=== PATIENT | male | born 1955 | race Caucasian/White ===

== ENCOUNTER → 2018-02-27 | Day surgery (SDC) | payer OTHER ==
[2018-02-27] VITALS (10 sets, daily range): BP systolic 125–167; BP diastolic 69–103; PULSE 51–62; TEMP 36.4–36.6; O2SAT 95–98; Ht 167.6 cm; Wt 91.0 kg
[~2018-02-27] VITALS: Ht 167.6 cm; Wt 91.0 kg
[~2018-02-27] MED LIST: ACETAMINOPHEN 500 MG TAB PO PRN; ASPI1TAB83 PO; ERGO500011 PO; HYDR-4852 PO; LPR50 PO; SIMV20TA2 PO
--- NOTE | 2018-02-27 08:52 | Discharge Instructions ---
Discharge Instructions Procedure Procedure Date: February 27, 2018. Reason for visit: Spinal Stenosis. Discharge Discharge Date: February 27, 2018. Discharge Diagnosis: same Instructions Activity Recommendations: No limitations Return to School/Work: no limitations Recommended Home Diet: Resume Previous Diet Provider Instructions: ACTIVITY RECOMMENDATIONS: * Rest today. * Resume regular activity in one day. MEDICATIONS: * May take Tylenol or Ibuprofen as needed for pain. DIET: * Resume previous diet. SPECIAL CARE INSTRUCTIONS: Call your doctor if: * Temperature above 101 degrees F. * Pain not relieved by pain medicine ordered. * Increased drainage or redness from incision. * Notify your doctor with any questions or concerns. Call your doctor or go to the nearest Emergency Department if you experience: * Increased chest pain or shortness of breath. FOLLOW UP VISIT: Follow-up with Referring Physician as scheduled. Allergies Coded Allergies: NO KNOWN DRUG ALLERGIES (Verified Allergy, Unknown, NONE, 02/27/18) Sofia Garcia Recommendations: Call your doctor if: * Temperature above 101 degrees * Pain not relieved by pain medicine ordered * There is increased drainage or redness from any incision * You have any unanswered questions or concerns. Your Doctors Instructions noted above were prepared by provider Hans Molina. Patient Signature Section: Patient Instructions Signature Page Arun Castillo Patient (or Guardian) Signature/Date: I have read and understand the instructions given to me by my caregivers. Caregiver/RN/Doctor Signature/Date: The above-named patient and/or guardian has received patient instructions on this date. + Original Patient Signature Page (only) stays with chart. Please make copy for patient.
--- NOTE | 2018-02-27 09:14 | DIAGNOSTIC IMAGING REPORT ---
FLUOROSCOPICALLY GUIDED LUMBAR MYELOGRAM CLINICAL HISTORY: back pain FLUOROSCOPY TIME: 0.2 minutes. 2 fluoroscopic spot images of the lumbar spine. PROCEDURE: The procedure, risks and benefits were discussed with the patient including the risk of spinal headache, bleeding and infection. The patient agreed to the procedure and informed written consent was obtained. The procedure was performed by Dr. Molina following a timeout. The L4-L5 level was targeted. Skin overlying the space was prepped and draped in the usual sterile fashion and local anesthesia was achieved with 1% lidocaine. Under intermittent fluoroscopic guidance, a 20-gauge x 3 1/2 in. Sprotte needle was inserted into the thecal sac. A total of 10 cc of Isovue-M 200 was injected into the thecal sac. The patient tolerated the procedure well. There were no immediate complications. IMPRESSION: Successful fluoroscopic guided lumbar myelogram. The patient was sent to the CT suite in stable condition for additional imaging. No immediate complications. Electronically signed by: Hans Molina M.D. 02/27/2018 9:13 AM Dictated Date/Time: 02/27/2018 9:11 AM
--- NOTE | 2018-02-27 09:29 | DIAGNOSTIC IMAGING REPORT ---
LUMBAR SPINE CT MYELOGRAM HISTORY: Low back pain. TECHNIQUE: Multiaxial CT images of the lumbar spine were performed and reformatted in the sagittal and coronal plane following the intrathecal injection of contrast. COMPARISON: Lumbar spine MRI 07/04/2014. FINDINGS: For the purpose of the report there will be 6 lumbar-type vertebral bodies with the L6 S1 disc space located on axial image 305. The L6 vertebral body demonstrates partial sacralization on the right with pseudoarthrosis of the right transverse process. There is posterior decompression and fusion at L5 L6 with pedicle screws and rods. The hardware appears intact. There is a right sacroiliac bolt present. No fractures within the lumbar spine. There is 4 mm of anterolisthesis of L5 on L6. This remains unchanged. Moderate facet degenerative changes at L3-L4, L4-L5, and L6 S1. Mild disc space narrowing at L5 L6 and L4-L5. There is minimal disc space narrowing at L2-L3. The conus terminates at the L1 level. L1-L2: No significant central canal or neural foraminal narrowing. L2-L3: Small broad-based posterior disc bulge without resulting in minimal central canal narrowing. This remains unchanged. L3-L4: No significant central canal or neural foraminal narrowing. L4-L5: No significant central canal or neural foraminal narrowing. L5 L6: No significant central canal narrowing. Posterior decompression. Mild bilateral neural foraminal narrowing. L6 S1: No significant central canal narrowing. Mild bilateral neural foraminal narrowing. IMPRESSION: 1. For the purpose of the report there are 6 lumbar-type vertebral bodies. Therefore, the posterior decompression and fusion is at L5 L6. 2. Small broad-based posterior disc bulge at L2-L3 resulting in minimal central canal narrowing. This remains unchanged. 3. Mild bilateral neural foraminal narrowing at L5 L6 and L6 S1. 4. Stable grade I anterolisthesis of L5 on L6. Electronically signed by: Hans Molina M.D. 02/27/2018 9:28 AM Dictated Date/Time: 02/27/2018 9:13 AM
== END | disposition home or self-care (01) ==
LOC: C.ACU 06:18
PROVIDERS: ATTEND Orthopaedic Surgery Orthopaedic Surgery of the Spine
DX: M48.061 Spinal stenosis, lumbar region without neurogenic claudication (principal)

== ENCOUNTER 2023-03-13 06:23 | Observation (INO) ==
--- NOTE | 2023-02-21 14:07 | PAT Medication Instructions ---
Medication Instructions Date of Service February 21, 2023 Home Medications aspirin 81 mg tablet,delayed release (Adult Aspirin Regimen) 81 mg PO HS metoprolol tartrate 50 mg tablet 50 mg PO HS ascorbic acid (vitamin C) 500 mg tablet (Vitamin C) 500 mg PO HS cholecalciferol (vitamin D3) 125 mcg (5,000 unit) tablet (Vitamin D3) 125 mcg PO HS ezetimibe 10 mg tablet 10 mg PO HS lisinopril 10 mg tablet 10 mg PO HS rosuvastatin 20 mg tablet 20 mg PO HS Take evening before surgery aspirin 81 mg tablet,delayed release (Adult Aspirin Regimen) 81 mg PO HS (continue as normal unless told otherwise by surgeon) metoprolol tartrate 50 mg tablet 50 mg PO HS ascorbic acid (vitamin C) 500 mg tablet (Vitamin C) 500 mg PO HS cholecalciferol (vitamin D3) 125 mcg (5,000 unit) tablet (Vitamin D3) 125 mcg PO HS ezetimibe 10 mg tablet 10 mg PO HS lisinopril 10 mg tablet 10 mg PO HS rosuvastatin 20 mg tablet 20 mg PO HS Other Notes If you have any questions please call us at [phone] or [phone] or [phone] or [phone]
--- NOTE | 2023-02-22 10:39 | Anesthesiology Consultation ---
Date of Service February 22, 2023 Assessment & Plan (1) Encounter for pre-operative examination: Chart Review Chart Review: Acceptable Risk for Surgery and Patient seen in Pre Admission Testing - Discussed case with Dr Noyola- patient stable from cardiac standpoint- follows routeinly with PCP- can proceed as scheduled without further evaluation - Pt is NOT an Outpatient Joint candidate due to comorbidities Per PAT appt on 02/20/23, patient traveling to [place] 02/24/23-03/01/23. Pt is vaccinated for Covid. Will leave to surgeon's discretion if preop Covid testing needed. Educated on importance of using Covid precautions one week prior to surgery Last seen by PCP 01/18/23= Seen for acute visit. Planning to travel to [place] near future. Start Celebrex after supper for knee inflammation. Hydrocodone given to take as needed. Follow simple diet rules. Call for further problems. Get nonfasting labs prior to next visit. Seen by PCP 01/02/2023 = CADstatus post CABG x3 in 2002. Hyperlipidemiaokay with Zetia and statin. [id number] 6.6-6.0diet controlled. Hypertensionokay with meds. DJD- get consults (referred to ortho). Mood disorderbetter ED. Teaching & Discussion Pre-Anesthesia Teaching/Discussion Notes: Instructed NPO after midnight before surgery,except medications with 15 cc of water. Medication instructions provided according to the PAT guidelines. History Surgery Operation Date: 03/13/23 10:40 Proposed Procedures p Right Knee Unicompartmental versus - See Causey MD s Right Total Knee Arthroplasty - See Causey MD Height/Weight Height: 5 ft 6 in Weight: 88.7 kg Allergies Allergy/AdvReac Type Severity Reaction Status Date / Time No Known Drug Allergies Allergy Unknown NONE Verified 02/21/23 11:47 Medications Home Medications Medication Instructions Recorded Confirmed Last Taken aspirin 81 mg tablet,delayed 81 mg PO HS 07/12/18 02/21/23 Unknown release (Adult Aspirin Regimen) metoprolol tartrate 50 mg tablet 50 mg PO HS 07/12/18 02/21/23 Unknown ascorbic acid (vitamin C) 500 mg 500 mg PO HS 02/21/23 02/21/23 Unknown tablet (Vitamin C) cholecalciferol (vitamin D3) 125 125 mcg PO HS 02/21/23 02/21/23 Unknown mcg (5,000 unit) tablet (Vitamin D3) ezetimibe 10 mg tablet 10 mg PO HS 02/21/23 02/21/23 Unknown lisinopril 10 mg tablet 10 mg PO HS 02/21/23 02/21/23 Unknown rosuvastatin 20 mg tablet 20 mg PO HS 02/21/23 02/21/23 Unknown Past Medical History Medical History Anxiety no meds Coronary artery disease S/p stents prior to 2002 S/p 3 vessel CABG 2002 No longer follows with cardio (only PRN) GERD (gastroesophageal reflux disease) Well controlled and stable Hearing deficit Hyperlipidemia Hypertension Lumbar degenerative disc disease (09/01/14) Lumbar postlaminectomy syndrome Sacroiliac joint dysfunction History of right SI joint fusion Exercise / Class Metabolic Activity II 4-5 Yardwork/Stairs/Walk up hill (one flight of stairs - no chest pain or SOB - uses cane for long distance ambulation- 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[employer])) Past Family History Family History Father Heart disease Mother Diabetes Other No family history of adverse response to anesthesia Past Surgical History Surgical History History of cardiac cath x5?--had stents placed (unsure how many--last had stents placed prior to triple bypass in 2002) last heart cath 2013@ [facility] (no stents placed) History of colonoscopy History of coronary artery bypass graft triple bypass @ 2002 @ [facility] in [place] History of lumbar fusion L4-5 History of tooth extraction S/P right knee arthroscopy Past Anesthesia History No Hx of Anesthesia Complications and No Family Hx of Anesthesia Complications History of PONV No Hx of PONV (nausea with pain medication after lumbar surgery (unsure of the name)) and No Hx of Motion Sickness Social History Smoking Status: Never smoker Do You Dip or Chew Tobacco: No (quit years ago) Hx Alcohol Use: No Hx Substance Use: No substance use type: does not use Review of Systems Hx of snoring- improved with weight loss- no hx of sleep study Patient denies chest pain, shortness of breath, dyspnea on exertion, cough, wheezing, palpitations. No hx of seizures, stroke. No hx of blood clots or blood transfusions Physical Exam Vital Signs VITALS BP 157/89 P 53bpm TEMP 98.1 SP02 98% RESP 16 Constitutional no acute distress ENMT Mouth: no TMJ clicking Thyromental Distance: > or= 3.5 Finger Breadths (3.5) Mallampati Class: I Neck + limited neck extension (mild to moderate ) Respiratory normal respiratory effort; no respiratory distress Auscultation: lungs clear to auscultation bilaterally; no wheezes Cardiovascular Rate/Rhythm: regular rate and regular rhythm Heart Sounds: no murmur Vessels: no carotid bruit Musculoskeletal Spine: no pain with cervical ROM (pain in shoulder with neck extension ) Extremities: extremities normal to inspection Psychiatric Orientation: alert Lab Results Anesthesia Preop Results Results Anesthesia Widget: WBC 8.34 K/ul (4.8-10.8) 02/22/23 Hgb 15.9 g/dl (14.0-18.0) 02/22/23 Hct 47.0 % (42.0-52.0) 02/22/23 Plt 307 K/uL (130-400) 02/22/23 Na 138 mmol/L (136-145) 02/22/23 K 4.7 mmol/L (3.5-5.1) 02/22/23 Cl 105 mmol/L (98-107) 02/22/23 CO2 28 mmol/L (21-32) 02/22/23 BUN 11 mg/dl (6-23) 02/22/23 Creat 0.71 mg/dl (0.6-1.4) 02/22/23 Glucose Level 76 mg/dl (70-99(Fasting)) 02/22/23 PT 10.6 Seconds (9.0-12.0) 02/22/23 PTT 27.8 Seconds (21.0-31.0) 02/22/23 INR 1.0 (0.9-1.1) 02/22/23 Blood Type O Positive 02/22/23 Antibody Screen NEGATIVE 02/22/23 Testing Electrocardiogram Date: 02/22/23 Findings: + SB @ (50bpm ) Right bundle branch block T wave abnormality, consider inferior lateral ischemia Compared to EKG from July 22, 2014no significant change was found per cardio Chest X-Ray Date: 02/22/23 Findings: + NAD COVID-19 Risk Screen Screening Information COVID-19 Screen Date: 02/22/23 Exposure 21 Days Family/Household +COVID Last 21 Days: No Exposure 10 Days Any COVID Exposure Last 10 Days: No Symptoms Last 10 Days Experienced COVID Sx Last 10 Days: No + COVID 0-90 Days COVID + in Last 0-90 Days: No Risk Plan COVID Risk Plan: No Risk Identified Patient Education COVID Preop Screening Education Complete: Yes
[~2023-03-13 06:23] MED LIST changes: -ACETAMINOPHEN 500 MG TAB PO PRN; +ACETAMINOPHEN 500 MG TAB PO SCH; -ASPI1TAB83 PO; +BUPIVACAINE LIPOSOME/PF 266 MG, BUPIVACAINE/EPINEPHRINE 50 ML, SODIUM CHLORIDE 0.9% PF ... INFIL SCH; +CeleBREX 200 MG CAP PO SCH; -ERGO500011 PO; +FAMOTIDINE 20 MG TAB PO SCH; -HYDR-4852 PO; -LPR50 PO; +LR 500ML BOLUS, THEN 15ML/HR IV SCH; +LR 60ML/HR IV SCH; +METOCLOPRAMIDE HCL 10 MG TABLET PO SCH; -SIMV20TA2 PO; +Scopolamine 1 MG TDSY TD SCH; +TRANEXAMIC ACID 1,000 MG **IV Intra-op IV SCH; +ceFAZolin 2000MG 2,000 MG/15 ML SYR IV SCH; +dexAMETHasone**PF** 10 MG/ML VIAL IV SCH
[2023-03-13] MEDS ORDERED: EPINEPHrine INJ 1 MG/ML AMP ONE (06:25)
[2023-03-13] MEDS ORDERED: BUPIVACAINE 0.5 % 5 MG/1 ML PF 10ML VIAL ONE (06:25)
[2023-03-13] MEDS ORDERED: ROPIVACAINE 0.5% 5 MG/ML 30 ML VIAL ONE (06:25)
--- NOTE | 2023-03-13 06:49 | History & Physical Bridge Note ---
Date of Service March 13, 2023 History & Physical Bridge Note I have examined the patient, reviewed the History & Physical and in the interval since the performance of the History & Physical I have noted the following changes of clinical significance: no changes noted
[2023-03-13] MEDS ORDERED: MIDAZOLAM HCL 1 MG/ML 2ML VIAL ONE (07:54)
[2023-03-13] MEDS ORDERED: fentaNYL citrate PF 100 MCG/2 ML VIAL ONE (07:54)
[2023-03-13] MEDS ORDERED: PROPOFOL IV EMULSION 10 MG/ML 20 ML VIAL IV ONE ×2 (07:54→10:11)
[2023-03-13] MEDS ORDERED: LIDOCAINE 2% 2 ML VIAL/AMP(20MG/ML) INFIL ONE (07:54)
[2023-03-13] MEDS ORDERED: ONDANSETRON INJ 2 MG/ML 2 ML VIAL ONE (07:54)
[2023-03-13] MEDS ORDERED: BUPIVACAINE/EPINEPHRINE 0.25% 1:200,000 30 ML VIAL ONE (08:38)
[2023-03-13] MEDS ORDERED: SODIUM CHLORIDE 0.9% PF 50 ML VIAL ONE (08:38)
[2023-03-13] MEDS ORDERED: BUPIVACAINE LIPOSOME 1.3% 266 MG/20 ML VIAL ONE (08:39)
[2023-03-13] MEDS ORDERED: KETAMINE 50 MG/5 ML SYRINGE ONE (08:57)
[2023-03-13] MEDS ORDERED: GLYCOPYRROLATE 0.2 MG/ML VIAL ONE (09:38)
[2023-03-13] MEDS ORDERED: ePHEDrine sulfate 50 MG/ML AMP IV PRN (09:45)
[2023-03-13] MEDS ORDERED: ATROPINE SULFATE 0.1 MG/ML 10ML SYR IV PRN (09:45)
[2023-03-13] MEDS ORDERED: KETOROLAC 30 MG/ML VIAL ONE (10:01)
--- NOTE | 2023-03-13 10:36 | Operative Report ---
PG Post Operative Report Pre & Post Diagnosis Operation Date: 03/13/23 08:40 Pre-Op Diagnosis: Right Knee Degenerative Joint Disease Post-Op Diagnosis: Right Knee Degenerative Joint Disease I identified the patient and participated in the time-out.: Yes Procedure Operation Date: 03/13/23 08:40 Actual Procedures p Right Knee Unicompartmental Arthroplasty(Right) - See Causey MD Surgeon See Causey MD Padded Products Finisher Eugenio Moseley PA-C Estimated Blood Loss 20 Findings Consistent with Post-Op Diagnosis Operative findings revealed advanced right knee medial compartment DJD. He had extensive grade 4 disease of the medial compartment and medial femoral condyle. Patient blood full-thickness cartilage loss. He had a central defect in the trochlea but the patella looked good. In the lateral compartment was just a slight bit of wear of the lateral femoral condyle and central aspect. Everything else looked well and we elected proceed with a partial knee replacement Specimens Right knee sent for pathology Anesthesia Type Spinal MAC Complications none Indications Patient is a 67-year-old gentleman whose had a history of progressive right medial knee pain discomfort describes gotten worse over the past 6 months. X- rays show progressive loss of medial joint space. MRI showed extensive marrow edema in the medial tibial plateau and medial femoral condyle. The rest of his knee look pretty well-preserved. His symptoms all localized to the medial side of his knee. He elected proceed with partial knee replacement. Description of Procedure Operative implants consist of: 1 Biomet Carbonado size medium femoral component. 2. Biomet Carbonado right medial size D tibial tray. 3. 4 mm mobile-bearing polyethylene insert. The patient was taken to the operating room, identified, and placed on the op erating table supine position. All contact areas were appropriately padded. IV antibiotics were provided by anesthesia team. A spinal anesthetic and abductor canal block had been provided in the holding area. We attempted to place a Mercer catheter but it folded up on itself on 2 separate occasions so we elected to leave this out. A right thigh turn was then placed. The right lower extremity then prepped and draped in usual sterile fashion. The right leg was elevated exsanguinated with use of an Esmarch and the tourniquet was placed at 300 mmHg. An anterior approach of the right knee was then performed to longitudinal incision centered over the medial aspect of the patella. This incision extended from superior pole the patella to just medial to the tibial tubercle. Sharp dissection Through subcutaneous tissues down to the extensor mechanism. A medial parapatellar arthrotomy incision was made. Some subperiosteal dissection was carried out medially. Great care was taken to protect the MCL at all times. The fat pad was resected. I then examined the knee and there was fairly minimal wear laterally. There is a small central defect of the trochlea and I elected proceed with a partial knee replacement. The distal femur was sized to a medium. The medium spoon was placed. The external tibial alignment jig was then placed in the interface of the tibia and attached to the spoon with a 4G clamp. The tibial cutting guide was pinned in place. The tibial cut was made. The tibia was sized to a size D. Attention drawn the femur. The distal femur was entered with a sharp drop with intramedullary jordin was placed. A medium femoral component set at 4 was then placed and attached to the IM jordin. The holes for the femoral component was placed. The posterior osteophyte guide was then placed in the posterior osteophyte was removed. I then milled the distal femur with a 0 spigot. I then resected the medial meniscus. We then trialed the knee and the 4 feeler gauge fit appropriately in flexion and the 1 in extension. We then placed the 3 spigot and milled the distal femur. We reach out the knee and the 4 feeler gauge fit appropriately in flexion extension. We elect to use these implants. Of note, his bone was quite soft and the femur and displacing the femoral component with the central hole caused a little bit of enlargement of the hole. All trial components were removed. Posterior osteophyte cutting guide was placed in the posterior osteophyte was removed. The cement drill was used to create holes in the distal femur for cement. The tibial tray was pinned in position and the toothbrush blade was used to create the defect for the tibial keel. We then trialed the knee 1 more time and the 4 insert fit appropriately. We elect to place these implants permanently. All trial implants were removed. I irrigated the wound extensively. We did inject locally with 100 cc of combination of 20 cc of Exparel, 30 cc normal saline, 50 cc of quarter percent Marcaine with epinephrine. A single patch of Palacos G cement was then mixed. A size medium femoral component, a size right medial de tibial tray were then cemented in place. All extraneous cement was removed. The 4 feeler gauge was placed and the knee was brought into 30 degrees short of full extension till cement hardened. Final cement check was then performed. The the wound was once again irrigated. We trialed the knee 1 more time and the fourth insert fit appropriately. The permanent 4 insert was placed. The tourniquet was then let down for tourniquet time 58 minutes. Hemo stasis assured with electrocautery. Extensor mechanism closed with #1 Vicryl suture in a [id number] fashion. Extensor mechanism checked found to be intact and subcutaneous tissues then closed with 2 Dexon suture in buried interrupted fashion skin was closed with skin miranda. Leg was then cleaned and dried and a sterile dressing was Xeroform, 4 fours, sterile cast padding, Zay bandage were applied. The patient then transferred to the recovery room in stable condition. The patient tolerated procedure well and there were no complications. Eugenio Moseley, my physician assistant grocery store manager, was present for the entire procedure. His assistance was essential and required for appropriate patient positioning, prepping and draping, surgical exposure, performing the technical details of the operation, placement the implants, closure of the wound, and placement of the sterile bandage. I attest to the content of the Intraoperative Record and any orders documented therein. Any exceptions are noted below.
--- NOTE | 2023-03-13 12:27 | Anesthesiology Progress Note ---
Date of Service March 13, 2023 Anesthesia Post Procedure Vital Signs Vital Signs: Temp Pulse Pulse Resp BP Pulse Ox O2 Del Method 03/13/23 11:55 36.7 C 55 L 13 128/64 98 Room Air 03/13/23 11:45 55 L 12 117/71 98 Room Air 03/13/23 11:35 51 L 16 117/66 99 Room Air 03/13/23 11:25 59 L 16 121/72 98 Room Air 03/13/23 11:15 63 16 122/73 98 Room Air 03/13/23 11:05 64 17 133/79 97 Room Air 03/13/23 10:55 62 15 125/67 95 Room Air 03/13/23 10:45 66 17 123/74 95 Room Air 03/13/23 10:35 36.1 C L 84 15 113/61 94 Room Air 03/13/23 07:03 36.6 C 58 L 20 147/80 H 98 Room Air Pain Intensity Right Knee: Pain Intensity: 5 Transfer of Care Handoff Completed per policy Notes Mental Status: alert / awake / arousable Patient Amnestic to Procedure: Yes Nausea / Vomiting: adequately controlled Pain: adequately controlled Airway Patency, RR, SpO2: stable & adequate BP & HR: stable & adequate Hydration State: stable & adequate Neuraxial Anesthesia: was administered and sensory block is resolving Anesthetic Complications: no major complications apparent
[2023-03-13] MEDS ORDERED: SODIUM CHLORIDE 0.9% 1000ML 1,000 ML IV SCH (12:38)
[2023-03-13] MEDS ORDERED: METOCLOPRAMIDE HCL INJ 5 MG/ML 2 ML VIAL IV PRN (12:38)
[2023-03-13] MEDS ORDERED: MAGNESIUM HYDROXIDE SUSP 30 ML UDC PO PRN (12:38)
[2023-03-13] MEDS ORDERED: ONDANSETRON INJ 2 MG/ML 2 ML VIAL IV PRN (12:38)
[2023-03-13] MEDS ORDERED: bisacodyL 10 MG SUPP PR PRN (12:38)
[2023-03-13] MEDS ORDERED: oxyCODONE HCL IR 5 MG TAB (IMMEDIATE RELEASE) PO PRN (12:38)
[2023-03-13] MEDS ORDERED: NALOXONE HCL 0.4 MG/1 ML VIAL/CARP IV PRN (12:38)
[2023-03-13] MEDS ORDERED: HYDROmorphone INJ 0.5 MG/0.5 ML SYR IV PRN (12:38)
[2023-03-13] MEDS ORDERED: ALUMINUM/MAGNESIUM SUSP 30 ML UDC PO PRN (12:38)
[2023-03-13] MEDS: ACETAMINOPHEN 500 MG TAB PO SCH ×2 (13:13→19:54)
[2023-03-13] MEDS: KETOROLAC TROMETHAMINE 15 MG/ML VIAL IV SCH ×2 (13:13→17:52)
--- NOTE | 2023-03-13 14:43 | XRay Report ---
XR knee RT 1 or 2V routine CLINICAL HISTORY: Surgical Post Op TECHNIQUE: 2 views of the right knee were obtained. Comparison: Comparison is made to MRI right knee 01/31/2023 FINDINGS: Patient is status post total knee arthroplasty with expected postsurgical changes including soft tiss ue swelling and subcutaneous emphysema. No periarticular lucency or hardware fracture is seen. IMPRESSION: Expected postoperative appearance status post placement of total knee arthroplasty. ACT 112: Negative or not required by law. Electronically signed by: Eliecer Smith M.D. 03/13/2023 2:41 PM
[2023-03-13] MEDS: Scopolamine CHECK PATCH PLACEMENT SCH (15:37)
[2023-03-13] MEDS: ceFAZolin 2000MG 2,000 MG/15 ML SYR IV SCH ×2 (17:53→23:59)
[2023-03-13] MEDS: ASPIRIN 81 MG ECTAB PO SCH (19:54)
[2023-03-13] MEDS: SENNA 8.6 MG TAB PO SCH (19:55)
[2023-03-13] MEDS: DOCUSATE SODIUM 100 MG CAP PO SCH (19:56)
[2023-03-13] MEDS ORDERED: ASCORBIC ACID 500 MG TAB PO SCH (21:00)
[2023-03-13] MEDS ORDERED: EZETIMIBE 10 MG TABLET PO SCH (21:00)
[2023-03-13] MEDS ORDERED: lisinopril 10 MG TAB PO SCH (21:00)
[2023-03-13] MEDS ORDERED: CHOLECALCIFEROL 5,000 UNITS 125 MCG TAB PO SCH (21:00)
[2023-03-13] MEDS ORDERED: SENNA 8.6 MG TAB PO SCH (21:00)
[2023-03-13] MEDS ORDERED: ROSUVASTATIN CALCIUM 20 MG TAB PO SCH (21:00)
[2023-03-13] MEDS ORDERED: METOPROLOL SUCC 50MG EXT REL TAB PO SCH (21:00)
[2023-03-14] MEDS: KETOROLAC TROMETHAMINE 15 MG/ML VIAL IV SCH ×3 (05:04→12:39)
[2023-03-14] MEDS ORDERED: dexAMETHasone 10 MG in SYRINGE 0 ML IV SCH (08:00)
[2023-03-14] MEDS ORDERED: MULTIVITAMIN TAB PO SCH (09:00)
[2023-03-14] MEDS ORDERED: TAMSULOSIN HCL 0.4 MG CAP PO SCH (09:00)
[2023-03-14] MEDS: Scopolamine CHECK PATCH PLACEMENT SCH ×2 (09:00)
[2023-03-14] MEDS: DOCUSATE SODIUM 100 MG CAP PO SCH (09:02)
[2023-03-14] MEDS: ASPIRIN 81 MG ECTAB PO SCH (09:02)
[2023-03-14] MEDS: SENNA 8.6 MG TAB PO SCH (09:02)
[2023-03-14] MEDS: ACETAMINOPHEN 500 MG TAB PO SCH (09:02)
--- NOTE | 2023-03-14 11:31 | Progress Notes ---
DATE OF SERVICE: 03/14/2023. SUBJECTIVE: A 67-year-old gentleman, postoperative day 1 from a right partial knee replacement. He is doing well. Pain is controlled. He had a pretty good night. Therapy went well this morning. OBJECTIVE: VITAL SIGNS: Temperature 36.9. Vital signs are stable. GENERAL: Shows a pleasant middle-aged male. He is sitting up in his bedside chair, looks ready to l eave. LUNGS: Clear to auscultation. HEART: Regular rate and rhythm. ABDOMEN: Soft, nontender, nondistended. EXTREMITIES: Grossly neurovascularly intact except as follows. Examination of the right leg reveals the leg to be well aligned. Dressing is clean, dry and intact. He can dorsiflex and plantarflex his foot appropriately. He can do a good straight leg raise. ASSESSMENT: A 67-year-old gentleman, postoperative day 1 from a right partial knee replacement, marvin hurt well. Pain is controlled. He is neurologically intact. PLAN: 1. DVT prophylaxis includes thigh-high TEDs, SCDs, and aspirin twice a day. 2. PT/OT, weightbear as tolerated. Right total knee protocol. 3. Pain control, doing okay with current pain regimen. 4. Disposition: Plan to discharge to home with some home health today. Job ID: [id number]
--- NOTE | 2023-03-18 06:54 | Discharge Summary ---
Date of Service March 18, 2023 Discharge Data Procedures Performed Operation Date: 03/13/23 08:40 Actual Procedures p Right Knee Unicompartmental Arthroplasty(Right) - See Causey MD Hospital Course (1) Status post right partial knee replacement: This is a 67 year old patient admitted on 03/13/23 and underwent partial knee replacement. He tolerated the procedure well and there were no complications. Transferred to the PACU post op and later to the orthopedic floor for further care. He was given ancef for antibiotic prophylaxis. He was also given AJ stockings, SCDs, and aspirin for DVT prophylaxis. Hemoglobin, hematocrit, and vital signs were monitored during his hospital stay and remained stable. Did not require any blood transfusions. There were no complications during his hospital stay. By post op day #1 the patient was tolerating a regular diet, pain was reasonably controlled with oral pain medicine, and he was participating in physical therapy. On post op day #1 the patient was discharged home and set up with home health care. He was given printed discharge instructions including prescriptions for extra strength tylenol, aspirin, ketorolac, zofran, senokot, oxycodone, and flomax. Continue physical therapy, weight bearing as tolerated. Continue AJ stockings. Follow up approximately 2 weeks post op or sooner if there are problems or concerns. Coding Level of Care Code None Diagnoses Status post right partial knee replacement Z96.651
== END 2023-03-14 14:06 | disposition home health service (06) ==
LOC: ASU 06:23 → 3E 06:23

== ENCOUNTER 2023-05-29 03:28 | Observation (INO) ==
--- NOTE | 2023-05-29 03:56 | Emergency Department Note ---
History of Present Illness General Chief complaint: Syncope Stated complaint: SYNCOPAL EPISODE Time Seen by Provider: 05/29/23 03:31 History of Present Illness Maximum Pain Intensity: 3 This is a 68-year-old male presenting to the emergency department for evaluation of syncopal episode. Patient arrives via EMS. Patient woke up around 2 AM, roughly 90 minutes prior to arrival, and needed to use the bathroom. He states that his hands felt hot and he sat back down in his bed. The patient stood up again to go wash his hands, but became lightheaded and dizzy, ultimately having a syncopal episode. The patient's heard him fall and was immediately able to check on him and called 911. EMS arrived roughly 25 minutes after the episode, and on EMS arrival he was hypotensive at 85/53. He has received about 1100 mL of normal saline prior to arrival here, and his vital signs have normalized. He does have some abrasions to the right forearm but no other injuries. He is without significant head, neck, chest, or abdominal pain. No recent flulike symptoms. No shortness of breath. There is past history of three-vessel CABG 20 years ago in the [place] area. He rates his current discomfort a 3/10. He has never had episodes like this in the past. Home Medications Medication Instructions Recorded Confirmed Type cholecalciferol (vitamin D3) 125 See Rx Instructions .Route .COMPLEX 02/21/23 05/29/23 History mcg (5,000 unit) tablet (Vitamin D3) ezetimibe 10 mg tablet (Zetia) 10 mg PO HS 02/21/23 05/29/23 History lisinopril 10 mg tablet 10 mg PO HS 02/21/23 05/29/23 History rosuvastatin 20 mg tablet 20 mg PO HS 02/21/23 05/29/23 History metoprolol succinate 50 mg 50 mg PO DAILY 03/13/23 05/29/23 History tablet,extended release 24 hr acetaminophen 500 mg tablet 1,000 mg PO TID PRN Pain 05/29/23 05/29/23 History (Tylenol Extra Strength) aspirin 81 mg tablet 81 mg PO DAILY 05/29/23 05/29/23 History Allergies Allergy/AdvReac Type Severity Reaction Status Date / Time No Known Drug Allergies Allergy Unknown NONE Verified 03/13/23 06:51 Past Med/Surg History Medical History (Updated 05/30/23 @ 02:24 by See Flores PA-C) Anxiety no meds Coronary artery disease S/p stents prior to 2002 S/p 3 vessel CABG 2002 No longer follows with cardio (only PRN) Encounter for pre-operative examination GERD (gastroesophageal reflux disease) Well controlled and stable Hearing deficit Hyperlipidemia Hypertension Lumbar degenerative disc disease (09/01/14) Lumbar postlaminectomy syndrome Sacroiliac joint dysfunction History of right SI joint fusion Surgical History (Updated 05/29/23 @ 08:52 by Pop Cartwright MD) History of cardiac cath x5?--had stents placed (unsure how many--last had stents placed prior to triple bypass in 2002) last heart cath 2013@ [facility] (no stents placed) History of colonoscopy History of coronary artery bypass graft triple bypass @ 2002 @ [place] in [place] History of lumbar fusion L4-5 - 2013 - Dr Arvind Concepcion History of tooth extraction S/P right knee arthroscopy Status post right partial knee replacement 02/2023 - Dr See Causey Family History (Updated 05/29/23 @ 08:12 by Pop Cartwright MD) Father Heart disease pacemaker Mother Diabetes Brother Coronary heart disease CABG Other No family history of adverse response to anesthesia Denies family history of Deep vein thrombosis Pulmonary embolism Social History (Updated 05/29/23 @ 08:13 by Pop Cartwright MD) Smoking Status: Never smoker Second Hand Exposure: No; Do You Dip or Chew Tobacco: No; Tobacco Cessation Education Requested by Patient: No Hx Alcohol Use: No Hx Substance Use: No Preferred Language: Czech Communication Ability: Effective Foot Press Operator Required: No Beliefs That Will Affect Care: None marital status: Current Living Situation: Spouse Current Living Situation Comment: spouse, and lives with grand daughter and 's cousin current occupational status: employed 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[place]; 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 How many Children do You have: 3 Other Information That Helps Us Care for You: No Feels Safe at Home: Yes Safety Concerns: Feels Safe At This Time Assistive Devices: Glasses and Hearing Aid - Bilateral Review of Systems A total of 10 systems reviewed and were otherwise negative Physical Exam Vital Signs Vital Signs - 24 hr 05/29/23 03:35 05/29/23 03:52 05/29/23 04:00 Temperature 36.6 C Temperature Source Oral Pulse Rate 87 86 Pulse Rate [Apical] 83 Pulse Rate from SpO2 Sensor Respiratory Rate 17 18 Respiratory Effort / Characteristics Non-Labored Spontaneous Non-Labored Spontaneous Respiratory Depth Normal Normal Respiratory Pattern Regular Blood Pressure 106/77 Blood Pressure [Right Arm] 126/75 Blood Pressure Mean 86 Blood Pressure Mean [Right Arm] 92 Pulse Oximetry 96 95 95 Oxygen Delivery Method Room Air Room Air Room Air Sepsis Recent Fever Within 48 Hours No Sepsis New/Unexplained Change in Mental Status No Sepsis Action Taken by Nursing No Action Required 05/29/23 04:44 05/29/23 04:31 05/29/23 05:00 Temperature Temperature Source Pulse Rate Pulse Rate [Apical] 80 80 91 H Pulse Rate from SpO2 Sensor Respiratory Rate 18 18 18 Respiratory Effort / Characteristics Non-Labored Spontaneous Non-Labored Spontaneous Respiratory Depth Normal Normal Respiratory Pattern Blood Pressure Blood Pressure [Right Arm] 105/64 88/51 L 97/65 L Blood Pressure Mean Blood Pressure Mean [Right Arm] 77 63 75 Pulse Oximetry 95 92 96 Oxygen Delivery Method Room Air Room Air Room Air Sepsis Recent Fever Within 48 Hours Sepsis New/Unexplained Change in Mental Status Sepsis Action Taken by Nursing 05/29/23 05:30 05/29/23 06:00 05/29/23 05:05 Temperature Temperature Source Pulse Rate 76 Pulse Rate [Apical] 67 71 Pulse Rate from SpO2 Sensor Respiratory Rate 17 17 Respiratory Effort / Characteristics Respiratory Depth Respiratory Pattern Blood Pressure Blood Pressure [Right Arm] 90/67 L 98/63 L Blood Pressure Mean Blood Pressure Mean [Right Arm] 74 74 Pulse Oximetry 96 97 Oxygen Delivery Method Room Air Room Air Sepsis Recent Fever Within 48 Hours Sepsis New/Unexplained Change in Mental Status Sepsis Action Taken by Nursing 05/29/23 06:30 05/29/23 03:35 05/29/23 03:36 Temperature Temperature Source Pulse Rate 89 Pulse Rate [Apical] 71 Pulse Rate from SpO2 Sensor 89 Respiratory Rate 18 20 Respiratory Effort / Characteristics Respiratory Depth Respiratory Pattern Blood Pressure 106/77 Blood Pressure [Right Arm] 117/70 Blood Pressure Mean 81 Blood Pressure Mean [Right Arm] 85 Pulse Oximetry 95 96 Oxygen Delivery Method Room Air Sepsis Recent Fever Within 48 Hours Sepsis New/Unexplained Change in Mental Status Sepsis Action Taken by Nursing 05/29/23 03:36 05/29/23 03:40 05/29/23 03:50 Temperature Temperature Source Pulse Rate 88 91 H 85 Pulse Rate [Apical] Pulse Rate from SpO2 Sensor 88 90 85 Respiratory Rate 19 21 22 Respiratory Effort / Characteristics Respiratory Depth Respiratory Pattern Blood Pressure Blood Pressure [Right Arm] Blood Pressure Mean Blood Pressure Mean [Right Arm] Pulse Oximetry 96 97 95 Oxygen Delivery Method Sepsis Recent Fever Within 48 Hours Sepsis New/Unexplained Change in Mental Status Sepsis Action Taken by Nursing 05/29/23 04:00 05/29/23 04:00 05/29/23 04:10 Temperature Temperature Source Pulse Rate 90 84 Pulse Rate [Apical] Pulse Rate from SpO2 Sensor 91 H 85 Respiratory Rate 23 22 Respiratory Effort / Characteristics Respiratory Depth Respiratory Pattern Blood Pressure 126/75 Blood Pressure [Right Arm] Blood Pressure Mean 80 Blood Pressure Mean [Right Arm] Pulse Oximetry 94 95 Oxygen Delivery Method Sepsis Recent Fever Within 48 Hours Sepsis New/Unexplained Change in Mental Status Sepsis Action Taken by Nursing 05/29/23 04:20 05/29/23 04:30 05/29/23 04:31 Temperature Temperature Source Pulse Rate 75 82 80 Pulse Rate [Apical] Pulse Rate from SpO2 Sensor 74 82 81 Respiratory Rate 18 17 18 Respiratory Effort / Characteristics Respiratory Depth Respiratory Pattern Blood Pressure Blood Pressure [Right Arm] Blood Pressure Mean Blood Pressure Mean [Right Arm] Pulse Oximetry 92 92 93 Oxygen Delivery Method Sepsis Recent Fever Within 48 Hours Sepsis New/Unexplained Change in Mental Status Sepsis Action Taken by Nursing 05/29/23 04:31 05/29/23 04:40 05/29/23 04:42 Temperature Temperature Source Pulse Rate 73 Pulse Rate [Apical] Pulse Rate from SpO2 Sensor 76 Respiratory Rate 14 Respiratory Effort / Characteristics Respiratory Depth Respiratory Pattern Blood Pressure 88/51 L 105/64 Blood Pressure [Right Arm] Blood Pressure Mean 62 73 Blood Pressure Mean [Right Arm] Pulse Oximetry 93 Oxygen Delivery Method Sepsis Recent Fever Within 48 Hours Sepsis New/Unexplained Change in Mental Status Sepsis Action Taken by Nursing 05/29/23 04:42 05/29/23 04:50 05/29/23 05:00 Temperature Temperature Source Pulse Rate 83 85 Pulse Rate [Apical] Pulse Rate from SpO2 Sensor 83 84 Respiratory Rate 17 20 Respiratory Effort / Characteristics Respiratory Depth Respiratory Pattern Blood Pressure 97/65 L Blood Pressure [Right Arm] Blood Pressure Mean 74 Blood Pressure Mean [Right Arm] Pulse Oximetry 92 91 Oxygen Delivery Method Sepsis Recent Fever Within 48 Hours Sepsis New/Unexplained Change in Mental Status Sepsis Action Taken by Nursing 05/29/23 05:00 05/29/23 05:10 05/29/23 05:18 Temperature Temperature Source Pulse Rate 70 76 Pulse Rate [Apical] Pulse Rate from SpO2 Sensor 71 74 Respiratory Rate 17 19 Respiratory Effort / Characteristics Respiratory Depth Respiratory Pattern Blood Pressure 101/67 Blood Pressure [Right Arm] Blood Pressure Mean 76 Blood Pressure Mean [Right Arm] Pulse Oximetry 94 92 Oxygen Delivery Method Sepsis Recent Fever Within 48 Hours Sepsis New/Unexplained Change in Mental Status Sepsis Action Taken by Nursing 05/29/23 05:18 05/29/23 05:20 05/29/23 05:30 Temperature Temperature Source Pulse Rate 76 74 Pulse Rate [Apical] Pulse Rate from SpO2 Sensor 75 74 Respiratory Rate 17 19 Respiratory Effort / Characteristics Respiratory Depth Respiratory Pattern Blood Pressure 90/67 L Blood Pressure [Right Arm] Blood Pressure Mean 71 Blood Pressure Mean [Right Arm] Pulse Oximetry 93 92 Oxygen Delivery Method Sepsis Recent Fever Within 48 Hours Sepsis New/Unexplained Change in Mental Status Sepsis Action Taken by Nursing 05/29/23 05:30 05/29/23 05:30 05/29/23 05:40 Temperature Temperature Source Pulse Rate 80 78 Pulse Rate [Apical] Pulse Rate from SpO2 Sensor 79 77 Respiratory Rate 18 23 Respiratory Effort / Characteristics Respiratory Depth Respiratory Pattern Blood Pressure 90/67 L Blood Pressure [Right Arm] Blood Pressure Mean 71 Blood Pressure Mean [Right Arm] Pulse Oximetry 93 94 Oxygen Delivery Method Sepsis Recent Fever Within 48 Hours Sepsis New/Unexplained Change in Mental Status Sepsis Action Taken by Nursing 05/29/23 05:50 05/29/23 06:00 05/29/23 06:00 Temperature Temperature Source Pulse Rate 68 71 Pulse Rate [Apical] Pulse Rate from SpO2 Sensor 69 70 Respiratory Rate 16 18 Respiratory Effort / Characteristics Respiratory Depth Respiratory Pattern Blood Pressure 98/63 L Blood Pressure [Right Arm] Blood Pressure Mean 67 Blood Pressure Mean [Right Arm] Pulse Oximetry 96 94 Oxygen Delivery Method Sepsis Recent Fever Within 48 Hours Sepsis New/Unexplained Change in Mental Status Sepsis Action Taken by Nursing 05/29/23 06:10 05/29/23 06:20 05/29/23 06:30 Temperature Temperature Source Pulse Rate 67 71 Pulse Rate [Apical] Pulse Rate from SpO2 Sensor 67 71 Respiratory Rate 19 20 Respiratory Effort / Characteristics Respiratory Depth Respiratory Pattern Blood Pressure 117/70 Blood Pressure [Right Arm] Blood Pressure Mean 83 Blood Pressure Mean [Right Arm] Pulse Oximetry 95 96 Oxygen Delivery Method Sepsis Recent Fever Within 48 Hours Sepsis New/Unexplained Change in Mental Status Sepsis Action Taken by Nursing 05/29/23 06:30 05/29/23 06:40 05/29/23 06:50 Temperature Temperature Source Pulse Rate 70 65 65 Pulse Rate [Apical] Pulse Rate from SpO2 Sensor 71 65 63 Respiratory Rate 20 19 20 Respiratory Effort / Characteristics Respiratory Depth Respiratory Pattern Blood Pressure Blood Pressure [Right Arm] Blood Pressure Mean Blood Pressure Mean [Right Arm] Pulse Oximetry 96 98 97 Oxygen Delivery Method Sepsis Recent Fever Within 48 Hours Sepsis New/Unexplained Change in Mental Status Sepsis Action Taken by Nursing 05/29/23 07:00 05/29/23 07:00 05/29/23 07:10 Temperature Temperature Source Pulse Rate 65 70 Pulse Rate [Apical] Pulse Rate from SpO2 Sensor 65 71 Respiratory Rate 18 17 Respiratory Effort / Characteristics Respiratory Depth Respiratory Pattern Blood Pressure 109/60 Blood Pressure [Right Arm] Blood Pressure Mean 71 Blood Pressure Mean [Right Arm] Pulse Oximetry 95 95 Oxygen Delivery Method Sepsis Recent Fever Within 48 Hours Sepsis New/Unexplained Change in Mental Status Sepsis Action Taken by Nursing 05/29/23 07:20 05/29/23 07:30 05/29/23 07:30 Temperature Temperature Source Pulse Rate 67 62 Pulse Rate [Apical] Pulse Rate from SpO2 Sensor 67 62 Respiratory Rate 16 18 Respiratory Effort / Characteristics Respiratory Depth Respiratory Pattern Blood Pressure 108/53 L Blood Pressure [Right Arm] Blood Pressure Mean 67 Blood Pressure Mean [Right Arm] Pulse Oximetry 94 95 Oxygen Delivery Method Sepsis Recent Fever Within 48 Hours Sepsis New/Unexplained Change in Mental Status Sepsis Action Taken by Nursing 05/29/23 07:40 Temperature Temperature Source Pulse Rate 70 Pulse Rate [Apical] Pulse Rate from SpO2 Sensor 70 Respiratory Rate 21 Respiratory Effort / Characteristics Respiratory Depth Respiratory Pattern Blood Pressure Blood Pressure [Right Arm] Blood Pressure Mean Blood Pressure Mean [Right Arm] Pulse Oximetry 96 Oxygen Delivery Method Sepsis Recent Fever Within 48 Hours Sepsis New/Unexplained Change in Mental Status Sepsis Action Taken by Nursing VITALS: Vitals are noted on the nurse's note and reviewed by myself. Vital signs stable. GENERAL: Well-developed, well-nourished, white male, who is in no acute distress and resting comfortably. Patient is cooperative with the examination. HEAD: Normocephalic atraumatic. NECK: Supple without nuchal rigidity. No lymphadenopathy. No thyromegaly. Cervical spine is nontender. HEART: Regular rate and rhythm without murmurs gallops or rubs. LUNGS: Clear to auscultation bilaterally without wheezes, rales or rhonchi. No retractions or accessory muscle use. ABDOMEN: Positive normal bowel sounds x 4. Soft, nontender, without masses or organomegaly. No guarding or rebound tenderness. MUSCULOSKELETAL: No muscle atrophy, erythema, or edema noted. Full range of motion in all extremities. NEURO: Patient was alert and oriented to person place and time. CN II through XII grossly intact. GCS 15. Course Administered Medications Discontinued Medications Aspirin (Aspirin Chew 324 Mg) 324 mg PO NOW STA Stop: 05/29/23 07:31 Last Admin: 05/29/23 07:52 Dose: 324 mg Documented By: VARGAS Acetaminophen (Ofirmev) 1,000 mg in 100 mls @ 400 mls/hr IV NOW STA Stop: 05/29/23 04:11 Last Infusion: 05/29/23 04:21 Dose: 0 mls/hr Documented By: Admin: 05/29/23 04:01 Dose: 400 mls/hr Documented By: AN Sodium Chloride (Nss 1000ml) 1,000 mls @ 999 mls/hr IV .[id number] PIEDAD Stop: 05/29/23 07:00 Last Infusion: 05/29/23 11:49 Dose: 0 mls/hr Documented By: Admin: 05/29/23 05:58 Dose: 999 mls/hr Documented By: AN Lactated Ringer's (Lr) 1,000 mls @ 75 mls/hr IV .[id number] PIEDAD Stop: 06/28/23 08:29 Last Admin: 05/29/23 09:13 Dose: 125 mls/hr Documented By: VARGAS Ioversol (Ioversol 350 Mg 125ml Prefilled Syringe) 119 ml IV ONCE ONE Stop: 05/29/23 08:56 Last Admin: 05/29/23 08:49 Dose: 119 ml Documented By: DOUGIE Medical Decision Making Differential Diagnosis Differential diagnosis includes, but is not limited to: Myocardial infarction, dysrhythmia, pericarditis, pneumothorax, aortic aneurysm/dissection, DVT/PE, anxiety, GERD, PUD, electrolyte imbalance, thyroid disorder, pneumonia, bronchitis, pancreatitis, and others Laboratory Data 05/29/23 04:17 05/29/23 04:17 Lab Results 05/29/23 05/29/23 05/29/23 Range/Units 04:17 04:17 04:17 WBC 16.62 H (4.8-10.8) K/ul RBC 5.58 (4.70-6.10) M/uL Hgb 17.3 (14.0-18.0) g/dl Hct 51.4 (42.0-52.0) % MCV 92.1 (80.0-100.0) fL MCH 31.0 (25.0-34.0) pg MCHC 33.7 (32.0-36.0) g/dL RDW Std Deviation 40.9 (36.4-46.3) fL RDW Coeff of Josselin 12.1 (11.5-14.5) % Plt Count 310 (130-400) K/uL MPV 8.2 L (9.4-12.4) fL Immature Gran % (Auto) 0.4 % Neut % (Auto) 82.5 % Lymph % (Auto) 11.1 % [place] % (Auto) 5.1 % Eos % (Auto) 0.7 % Baso % (Auto) 0.2 % Neut # (Auto) 13.69 H (1.40-6.50) K/uL Lymph # (Auto) 1.85 (1.2-3.4) K/uL [place] # (Auto) 0.85 H (0.11-0.59) K/uL Eos # (Auto) 0.12 (0-0.50) K/uL Baso # (Auto) 0.04 (0-0.2) K/uL Immature Gran # (Auto) 0.07 (0.01-0.20) K/uL Sodium 138 (136-145) mmol/L Potassium 3.8 (3.5-5.1) mmol/L Chloride 110 H (98-107) mmol/L Carbon Dioxide 20 L (21-32) mmol/L Anion Gap 8 (3-11) BUN 16 (6-23) mg/dl Creatinine 0.84 (0.6-1.4) mg/dl Est Cr Clr Drug Dosing 78.1 ml/min Est GFR ( Amer) 105.7 ml/min Est GFR (Non-Af Amer) 91.2 ml/min BUN/Creatinine Ratio 19.0 (10-20) Glucose 130 H (70-99(Fasting)) mg/dl Calcium 8.9 (8.6-10.3) mg/dl Magnesium 2.0 (1.7-2.4) mg/dl Total Bilirubin 0.4 (0.2-1.0) mg/dl AST 24 (13-39) U/L ALT 19 (7-52) U/L Alkaline Phosphatase 73 (34-104) U/L Troponin I High Sens 18.3 (0-20) pg/ml C-Reactive Protein (0-0.5) mg/dl Total Protein 7.1 (6.0-8.3) gm/dl Albumin 4.2 (3.4-5.0) gm/dl Globulin 2.9 (2.5-4.0) gm/dl Albumin/Globulin Ratio 1.4 (0.9-2) Procalcitonin (0-0.5) ng/ml TSH 0.801 (0.300-4.500) uIu/ml Urine Color Urine Appearance (Clear) Urine pH (4.5-7.5) Ur Specific [place]child (1.000-1.030) Urine Protein (Negative) Urine Glucose (UA) (Negative) Urine Ketones (Negative) Urine Blood (Negative) Urine Nitrite (Negative) Urine Bilirubin (Negative) Urine Urobilinogen (Negative) Ur Leukocyte Esterase (Negative) Urine WBC (Auto) (0-5) /hpf Urine RBC (Auto) (0-4) /hpf U Hyaline Cast (Auto) (0-5) /lpf U Epithel Cells (Auto) (0-5) /lpf Urine Bacteria (Auto) (Negative) Ur Renal Epithelial Cell Urine Mucus (None Prsent) Anaplasma Smear Lyme Disease IgG Ab (Negative) Lyme Disease IgM Ab (Negative) 05/29/23 05/29/23 05/29/23 Range/Units 04:17 04:17 04:17 WBC (4.8-10.8) K/ul RBC (4.70-6.10) M/uL Hgb (14.0-18.0) g/dl Hct (42.0-52.0) % MCV (80.0-100.0) fL MCH (25.0-34.0) pg MCHC (32.0-36.0) g/dL RDW Std Deviation (36.4-46.3) fL RDW Coeff of Josselin (11.5-14.5) % Plt Count (130-400) K/uL MPV (9.4-12.4) fL Immature Gran % (Auto) % Neut % (Auto) % Lymph % (Auto) % [place] % (Auto) % Eos % (Auto) % Baso % (Auto) % Neut # (Auto) (1.40-6.50) K/uL Lymph # (Auto) (1.2-3.4) K/uL [place] # (Auto) (0.11-0.59) K/uL Eos # (Auto) (0-0.50) K/uL Baso # (Auto) (0-0.2) K/uL Immature Gran # (Auto) (0.01-0.20) K/uL Sodium (136-145) mmol/L Potassium (3.5-5.1) mmol/L Chloride (98-107) mmol/L Carbon Dioxide (21-32) mmol/L Anion Gap (3-11) BUN (6-23) mg/dl Creatinine (0.6-1.4) mg/dl Est Cr Clr Drug Dosing ml/min Est GFR ( Amer) ml/min Est GFR (Non-Af Amer) ml/min BUN/Creatinine Ratio (10-20) Glucose (70-99(Fasting)) mg/dl Calcium (8.6-10.3) mg/dl Magnesium (1.7-2.4) mg/dl Total Bilirubin (0.2-1.0) mg/dl AST (13-39) U/L ALT (7-52) U/L Alkaline Phosphatase (34-104) U/L Troponin I High Sens (0-20) pg/ml C-Reactive Protein (0-0.5) mg/dl Total Protein (6.0-8.3) gm/dl Albumin (3.4-5.0) gm/dl Globulin (2.5-4.0) gm/dl Albumin/Globulin Ratio (0.9-2) Procalcitonin < 0.05 (0-0.5) ng/ml TSH (0.300-4.500) uIu/ml Urine Color Urine Appearance (Clear) Urine pH (4.5-7.5) Ur Specific [place] (1.000-1.030) Urine Protein (Negative) Urine Glucose (UA) (Negative) Urine Ketones (Negative) Urine Blood (Negative) Urine Nitrite (Negative) Urine Bilirubin (Negative) Urine Urobilinogen (Negative) Ur Leukocyte Esterase (Negative) Urine WBC (Auto) (0-5) /hpf Urine RBC (Auto) (0-4) /hpf U Hyaline Cast (Auto) (0-5) /lpf U Epithel Cells (Auto) (0-5) /lpf Urine Bacteria (Auto) (Negative) Ur Renal Epithelial Cell Urine Mucus (None Prsent) Anaplasma Smear See Comment Lyme Disease IgG Ab Negative (Negative) Lyme Disease IgM Ab Negative (Negative) 05/29/23 05/29/23 Range/Units 05:06 07:38 WBC (4.8-10.8) K/ul RBC (4.70-6.10) M/uL Hgb (14.0-18.0) g/dl Hct (42.0-52.0) % MCV (80.0-100.0) fL MCH (25.0-34.0) pg MCHC (32.0-36.0) g/dL RDW Std Deviation (36.4-46.3) fL RDW Coeff of Josselin (11.5-14.5) % Plt Count (130-400) K/uL MPV (9.4-12.4) fL Immature Gran % (Auto) % Neut % (Auto) % Lymph % (Auto) % King[place] % (Auto) % Eos % (Auto) % Baso % (Auto) % Neut # (Auto) (1.40-6.50) K/uL Lymph # (Auto) (1.2-3.4) K/uL [place] # (Auto) (0.11-0.59) K/uL Eos # (Auto) (0-0.50) K/uL Baso # (Auto) (0-0.2) K/uL Immature Gran # (Auto) (0.01-0.20) K/uL Sodium (136-145) mmol/L Potassium (3.5-5.1) mmol/L Chloride (98-107) mmol/L Carbon Dioxide (21-32) mmol/L Anion Gap (3-11) BUN (6-23) mg/dl Creatinine (0.6-1.4) mg/dl Est Cr Clr Drug Dosing ml/min Est GFR ( Amer) ml/min Est GFR (Non-Af Amer) ml/min BUN/Creatinine Ratio (10-20) Glucose (70-99(Fasting)) mg/dl Calcium (8.6-10.3) mg/dl Magnesium (1.7-2.4) mg/dl Total Bilirubin (0.2-1.0) mg/dl AST (13-39) U/L ALT (7-52) U/L Alkaline Phosphatase (34-104) U/L Troponin I High Sens 49.6 H D (0-20) pg/ml C-Reactive Protein < 0.50 (0-0.5) mg/dl Total Protein (6.0-8.3) gm/dl Albumin (3.4-5.0) gm/dl Globulin (2.5-4.0) gm/dl Albumin/Globulin Ratio (0.9-2) Procalcitonin (0-0.5) ng/ml TSH (0.300-4.500) uIu/ml Urine Color Yellow Urine Appearance Clear (Clear) Urine pH 5.0 (4.5-7.5) Ur Specific [place] 1.014 (1.000-1.030) Urine Protein 2+ H (Negative) Urine Glucose (UA) Trace H (Negative) Urine Ketones Negative (Negative) Urine Blood Negative (Negative) Urine Nitrite Negative (Negative) Urine Bilirubin Negative (Negative) Urine Urobilinogen Negative (Negative) Ur Leukocyte Esterase Negative (Negative) Urine WBC (Auto) 1-5 (0-5) /hpf Urine RBC (Auto) 0-4 (0-4) /hpf U Hyaline Cast (Auto) 10-30 H (0-5) /lpf U Epithel Cells (Auto) >30 H (0-5) /lpf Urine Bacteria (Auto) Negative (Negative) Ur Renal Epithelial Cell Not Reportable Urine Mucus Present A (None Prsent) Anaplasma Smear Lyme Disease IgG Ab (Negative) Lyme Disease IgM Ab (Negative) ECG Data Additional Comments: EKG#1: Normal sinus rhythm @87 bpm Left axis deviation Right bundle branch block When compared with ECG of 22-FEB-2023 11:07, Vent. rate has increased BY 37 BPM T wave inversion no longer evident in Inferior leads T wave inversion no longer evident in Lateral leads QT has lengthened EKG #2 Normal sinus rhythm @69 bpm Right bundle branch block T wave abnormality, consider lateral ischemia When compared with ECG of 29-MAY-2023 03:35, T wave inversion now evident in Lateral leads QT has shortened MDM Narrative Physical exam and history were performed. Nursing notes, EMR, and Medication List were personally reviewed. No social concerns were identified as barriers to patients care. Patient appears to have syncopal episode upon getting out of bed and using the bathroom. Patient does have a history of CABG at a very young age, 22 years ago. The patient has not had recent fevers or chills. He does not endorse any distinct chest pain, chest tightness, shortness of breath. IV access was established and labs were obtained. Patient has been given over a liter of normal saline prehospital and while he was initially hypotensive for EMS, this has corrected, and additional fluids were not immediately provided. Patient's blood work is as above and was reviewed. His white count is elevated at 16,000 from unknown source. He does not have significant anemia, bandemia, or gross electrolyte imbalance. Lipase and transaminases are not diagnostic. Troponin x 1 is negative. An order was placed for continuous cardiac monitoring. The monitor shows a rate of 74 with normal sinus rhythm. Patient was reevaluated multiple times over the course of his stay. He initially had normalization of vital signs on arrival, but had some hypotensive episodes while laying in the bed. Because of this I did give him an additional liter of saline and repeat EKG. Second EKG shows distinct flipping of T waves laterally, which is concerning for possible ischemic/cardiac event causing his symptoms. Heart score is 6 placing him at moderate risk for cardiac event. Patient continues without pain or other complaints at this time. Case was discussed with my attending physician, as well as the on-call hospitalist. We do not feel the patient is well for discharge at this time. He will likely need further inpatient evaluation. Please see the hospitalist dictation for further patient course, plan, and disposition. The chart was completed utilizing [employer] Voice Recognition Software. Grammatical errors, random word insertions, pronoun errors, and incomplete sentences are an occasional consequence of this system due to software limitations, ambient noise, and hardware issues. Any formal questions or concerns about the content, text, or information contained within the body of this dictation should be directly addressed to the provider for clarification. . Impression & Plan Syncope, Acute electrocardiogram changes Discharge Plan Visit Data Chief Complaint: Syncope Stated Complaint: SYNCOPAL EPISODE ED Provider: Rashmi Francois ED Midlevel Provider: See Flores Discharge Problem: Syncope, Acute electrocardiogram changes Patient Disposition: Admitted As Inpatient Discharge Instructions Interventions: ED Discharge Assessment Last Done: 05/29/23 11:18
[2023-05-29] MEDS ORDERED: ACETAMINOPHEN 1,000 MG/100 ML VIAL IV STA (03:57)
[2023-05-29 04:41] LABS: Basophils # (auto) 0.04 K/uL (0-0.2); Basophils % (auto) 0.2 %; Eosinophils # (auto) 0.12 K/uL (0-0.50); Eosinophils % (auto) 0.7 %; Hematocrit (blood only) 51.4 % (42.0-52.0); Hemoglobin 17.3 g/dl (14.0-18.0); Immature Granulocytes # (auto) 0.07 K/uL (0.01-0.20); Immature Granulocytes % (auto) 0.4 %; Lymphocytes # (auto) 1.85 K/uL (1.2-3.4); Lymphocytes % (auto) 11.1 %; Mean Corpuscular Hgb Conc 33.7 g/dL (32.0-36.0); Mean Corpuscular Volume 92.1 fL (80.0-100.0); Mean Platelet Volume 8.2 fL (9.4-12.4); Monocytes # (auto) 0.85 K/uL (0.11-0.59); Monocytes % (auto) 5.1 %; Neutrophils # (auto) 13.69 K/uL (1.40-6.50); Neutrophils % (auto) 82.5 %; Platelet Count 310 K/uL (130-400); RDW Coefficient of Variation 12.1 % (11.5-14.5); RDW Standard Deviation 40.9 fL (36.4-46.3); Red Blood Count 5.58 M/uL (4.70-6.10); White Blood Count 16.62 K/ul (4.8-10.8)
[2023-05-29 05:00] LABS: Albumin Globulin Ratio 1.4 (0.9-2); Albumin Level 4.2 gm/dl (3.4-5.0); Bilirubin,Total 0.4 mg/dl (0.2-1.0); Calcium 8.9 mg/dl (8.6-10.3); Creatinine Clr Calc Pharmacy 78.1 ml/min; Est GFR (African American) 105.7 ml/min; Est GFR (Non-African American) 91.2 ml/min; Globulin 2.9 gm/dl (2.5-4.0); Potassium 3.8 mmol/L (3.5-5.1); Total Protein 7.1 gm/dl (6.0-8.3)
[2023-05-29 05:23] LABS: Troponin I High Sensitivity 18.3 pg/ml (0-20)
[2023-05-29 05:29] LABS: Appearance Urine Clear (Clear); Bacteria Urine Automated Negative (Negative); Bilirubin Urine Negative (Negative); Blood Urine Negative (Negative); Color Urine Yellow; Epithelial Cell Urine Auto >30 /lpf (0-5); Glucose Urine UA Trace (Negative); Ketones Urine Negative (Negative); Leukocyte Esterase Urine Negative (Negative); Nitrite Urine Negative (Negative); Protein Urine 2+ (Negative); RBC Urine Automated 0-4 /hpf (0-4); Specific Gravity Urine 1.014 (1.000-1.030); Urobilinogen Urine Negative (Negative)
[2023-05-29 05:44] LABS: Mucus Urine Present (None Prsent)
[2023-05-29] MEDS ORDERED: SODIUM CHLORIDE 0.9% 1000ML 1,000 ML IV SCH (06:00)
--- NOTE | 2023-05-29 07:14 | XRay Report ---
XR chest 1V portable CLINICAL HISTORY: syncope TECHNIQUE: Single frontal radiograph of the chest was obtained. Comparison: Comparison is made to chest radiograph 02/22/2023 FINDINGS: Median sternotomy wires are unchanged. Cardiomegaly is noted. The lungs are clear. No evidence of ple ural effusion or pneumothorax. IMPRESSION: No acute chest disease. Cardiomegaly is noted. ACT 112: Negative or not required by law. Electronically signed by: Eliecer Smith M.D. 05/29/2023 7:12 AM
[2023-05-29] MEDS ORDERED: ASPIRIN CHEW 324 MG PO STA (07:30)
--- NOTE | 2023-05-29 07:30 | History & Physical Report ---
Date of Service May 29, 2023 Assessment & Plan (1) Syncope: Plan: Clinical picture most consistent with vasovagal in etiology. He appears volume contracted, had documented hypotension, had prodromal symptoms prior to the event, etc. However, will rule out thromboembolic event in light of recent knee surgery. Check CTA Chest. In addition, there were EKG changes laterally on his 2nd EKG. Given his known CAD and mildly positive troponin will need, at minimum, 2D echocardiogram and serial troponins. Will ask [facility] to see in consult not so much for the syncope but because of the EKG changes and positive troponin. Place on telemetry. Hydrate with IV fluids. Check a set of orthostatics later today to ensure stable BP with standing. (2) Hypotension: Plan: 2nd to #1. Improving s/p IVF given in ER. Continue IV fluids on the floor. Will hold lisinopril and metoprolol for now. (3) Elevated troponin: Plan: Very mild elevation. Some lateral EKG changes seen. Obtain serial troponins, echocardiogram, place on telemetry, and consult [facility] for their opinion. Despite the elevated troponin he did not have typical ischemic symptoms this am during his syncopal event. Also, he is very physically active and has not had any limiting cardiopulmonary symptoms leading up to this morning. (4) Abnormal EKG: Plan: 1st degree AVB. RBBB. Lateral T wave changes seen on 2nd EKG today. See above. 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 (5) Leukocytosis: Plan: Likely 2nd to #1 and the stress associated with such. U/a not suggestive of UTI. CXR without evidence of pneumonia. Getting CTA chest. Check lyme screen. Send anaplasmosis DNA test. He did have diarrhea immediately following his syncope, but has had no diarrhea since, and has had no vomiting. Follow for additional GI symptoms. (6) Coronary artery disease: Plan: Multiple stents in the past, followed by 3V CABG early [address] at [facility] in [place]. Last cardiac catheterization ~2013 by report. Continue aspirin. Continue statin. Continue zetia. Ultimately resume metoprolol & lisinopril. (7) Hypertension: Plan: Due to #1, #2 hold metoprolol & lisinopril for now. (8) GERD (gastroesophageal reflux disease): Plan: Not on medications for such. (9) Status post right partial knee replacement: Plan: 02/2023 - Dr See Causey Took asa 81mg BID for 6 weeks post-op for DVT proph Right knee well-healed; no effusion or signs of infection History of Present Illness Chief Complaint: syncope Primary Care Provider: Frederick Pantoja 68yo male with history of CAD, s/p multiple stents as well as 3-vessel CABG in [address] [facility] in [place] (last cardiac cath 2013 - no intervention), recent right partial knee replacement late February 2023, hyperlipidemia, and HTN presents after having had dizziness followed by syncope overnight. Patient states he was quite physically active yesterday. 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 He then picked blueberries yesterday evening. Throughout the day yesterday he had very little to drink (about 12 ounces of liquid only). He felt fine throughout the day - no chest pain, dyspnea, dizziness, flu-like symptoms, fever, etc. He went to bed last pm in usual fashion and woke up in the middle of the night to use the bathroom. He voided, washed his hands, and upon doing so his hands were burning and itchy. He walked back to the bedroom and felt dizzy/lightheaded. He got back in bed and the dizziness passed. A few minutes later he got out of bed again and this time felt dizzy and proceeded to pass out and collapsed to the floor. He lost consciousness for about 20-30 seconds. Upon awakening he had mild stomach upset and had an incredible urge to defecate. He had 2 diarrheal episodes on the floor because he was too weak to get up. EMS was summoned to his home, and upon EMS arrival his SBP was in the 80s by report. He received IV fluids en route to [facility]. Patient reports no chest pain or dyspnea since arriving to [facility]. The mild nausea and stomach discomfort he had had earlier in the morning has resolved. He denies any recent limiting exertional chest pain or dyspnea. In fact on Monday he split wood for several hours without limitation. Despite his cardiac history he has not had any cardiac follow-up since 2013. He does take asa 81mg daily. In the ER his initial EKG showed NSR with RBBB. 2nd EKG showed lateral T wave changes in I/AVL and V4-V6 - new from prior EKG. Allergies Allergy/AdvReac Type Severity Reaction Status Date / Time No Known Drug Allergies Allergy Unknown NONE Verified 03/13/23 06:51 Home Medications Medication Instructions Recorded Confirmed Type cholecalciferol (vitamin D3) 125 See Rx Instructions .Route .COMPLEX 02/21/23 05/29/23 History mcg (5,000 unit) tablet (Vitamin D3) ezetimibe 10 mg tablet (Zetia) 10 mg PO HS 02/21/23 05/29/23 History lisinopril 10 mg tablet 10 mg PO HS 02/21/23 05/29/23 History rosuvastatin 20 mg tablet 20 mg PO HS 02/21/23 05/29/23 History metoprolol succinate 50 mg 50 mg PO DAILY 03/13/23 05/29/23 History tablet,extended release 24 hr acetaminophen 500 mg tablet 1,000 mg PO TID PRN Pain 05/29/23 05/29/23 History (Tylenol Extra Strength) aspirin 81 mg tablet 81 mg PO DAILY 05/29/23 05/29/23 History Past Med/Surg History Medical History (Updated 05/30/23 @ 02:24 by See Flores PA-C) Anxiety no meds Coronary artery disease S/p stents prior to 2002 S/p 3 vessel CABG 2002 No longer follows with cardio (only PRN) Encounter for pre-operative examination GERD (gastroesophageal reflux disease) Well controlled and stable Hearing deficit Hyperlipidemia Hypertension Lumbar degenerative disc disease (09/01/14) Lumbar postlaminectomy syndrome Sacroiliac joint dysfunction History of right SI joint fusion Surgical History (Updated 05/29/23 @ 08:52 by Pop Cartwright MD) History of cardiac cath x5?--had stents placed (unsure how many--last had stents placed prior to triple bypass in 2002) last heart cath 2013@ [facility] (no stents placed) History of colonoscopy History of coronary artery bypass graft triple bypass @ 2002 @ [facility] in [place] History of lumbar fusion L4-5 - 2013 - Dr Arvind Concepcion History of tooth extraction S/P right knee arthroscopy Status post right partial knee replacement 02/2023 - Dr See Causey Family History (Updated 05/29/23 @ 08:12 by Pop Cartwright MD) Father Heart disease pacemaker Mother Diabetes Brother Coronary heart disease CABG Other No family history of adverse response to anesthesia Denies family history of Deep vein thrombosis Pulmonary embolism Social History (Updated 05/29/23 @ 08:13 by Pop Cartwright MD) Smoking Status: Never smoker Second Hand Exposure: No; Do You Dip or Chew Tobacco: No; Hx Alcohol Use: No Hx Substance Use: No Preferred Language: Sammarinese Communication Ability: Effective Transitions Manager Required: No Beliefs That Will Affect Care: None marital status: Current Living Situation: Spouse Current Living Situation Comment: spouse, and lives with grand daughter and 's cousin current occupational status: employed 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[place]; 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 How many Children do You have: 3 Feels Safe at Home: Yes Assistive Devices: Glasses and Hearing Aid - Bilateral Review of Systems Review of Systems: gen - no fevers, no chills; normal appetite; no recent weight change eyes - no visual loss HENT - nasal congestion (allergies); no sore throat, ear pain CV - no chest pain either at rest or with exertion; no orthopnea; no PND pulm - no cough, no dyspnea, no DODD GI - mild stomach upset with nausea this am in context of syncope; followed by diarrhea; no BRBPR; no melena - no dysuria musculo - right knee replacement in February; denies back pain or joint pain today skin - no rash endo - denies diabetes neuro - no headache, no paresthesias psych - no depression or anxiety Physical Exam Physical Exam: gen - NAD, looks suntanned, awake, alert, oriented x 3 eyes - PERRL HENT - MM slightly pasty; TMs clear b/l; nose clear neck - no JVD, no bruits, no thyroid masses heart - RRR, s1 s2, no murmur lungs - CTA b/l, no rales abd - soft NT ND BS+ chest - midline scar present ext - no edema, pulses 2+ b/l skin - suntanned and mild sunburn on face; knee replacement scar right knee well-healed; no rash musculo - no joint effusion right knee neuro - no facial droop; strength 5/5 x 4 exts; DTRs 2+ b/l psych - a/o x 3 Results & Data Results & Data Vital Signs (Past 12 Hours) Vital Signs Temp Pulse Pulse Resp BP BP Pulse Ox 05/29/23 06:30 71 18 117/70 95 05/29/23 05:05 76 05/29/23 06:00 71 17 98/63 L 97 05/29/23 05:30 67 17 90/67 L 96 05/29/23 05:00 91 H 18 97/65 L 96 05/29/23 04:31 80 18 88/51 L 92 05/29/23 04:44 80 18 105/64 95 05/29/23 04:00 83 18 126/75 95 05/29/23 03:52 86 95 05/29/23 03:35 36.6 C 87 17 106/77 96 O2 Del Method 05/29/23 06:30 Room Air 05/29/23 05:05 05/29/23 06:00 Room Air 05/29/23 05:30 Room Air 05/29/23 05:00 Room Air 05/29/23 04:31 Room Air 05/29/23 04:44 Room Air 05/29/23 04:00 Room Air 05/29/23 03:52 Room Air 05/29/23 03:35 Room Air Laboratory Results Laboratory Results - last 24 hr 05/29/23 05/29/23 05/29/23 04:17 04:17 04:17 WBC 16.62 H RBC 5.58 Hgb 17.3 Hct 51.4 MCV 92.1 MCH 31.0 MCHC 33.7 RDW Std Deviation 40.9 RDW Coeff of Josselin 12.1 Plt Count 310 MPV 8.2 L Immature Gran % (Auto) 0.4 Neut % (Auto) 82.5 Lymph % (Auto) 11.1 [place] % (Auto) 5.1 Eos % (Auto) 0.7 Baso % (Auto) 0.2 Neut # (Auto) 13.69 H Lymph # (Auto) 1.85 [place] # (Auto) 0.85 H Eos # (Auto) 0.12 Baso # (Auto) 0.04 Immature Gran # (Auto) 0.07 Sodium 138 Potassium 3.8 Chloride 110 H Carbon Dioxide 20 L Anion Gap 8 BUN 16 Creatinine 0.84 Est Cr Clr Drug Dosing 78.1 Est GFR ( Amer) 105.7 Est GFR (Non-Af Amer) 91.2 BUN/Creatinine Ratio 19.0 Glucose 130 H Calcium 8.9 Magnesium 2.0 Total Bilirubin 0.4 AST 24 ALT 19 Alkaline Phosphatase 73 Troponin I High Sens 18.3 C-Reactive Protein Total Protein 7.1 Albumin 4.2 Globulin 2.9 Albumin/Globulin Ratio 1.4 Procalcitonin TSH 0.801 Urine Color Urine Appearance Urine pH Ur Specific [place] Urine Protein Urine Glucose (UA) Urine Ketones Urine Blood Urine Nitrite Urine Bilirubin Urine Urobilinogen Ur Leukocyte Esterase Urine WBC (Auto) Urine RBC (Auto) U Hyaline Cast (Auto) U Epithel Cells (Auto) Urine Bacteria (Auto) Ur Renal Epithelial Cell Urine Mucus 05/29/23 05/29/23 05/29/23 04:17 05:06 07:38 WBC RBC Hgb Hct MCV MCH MCHC RDW Std Deviation RDW Coeff of Josselin Plt Count MPV Immature Gran % (Auto) Neut % (Auto) Lymph % (Auto) [place] % (Auto) Eos % (Auto) Baso % (Auto) Neut # (Auto) Lymph # (Auto) [place] # (Auto) Eos # (Auto) Baso # (Auto) Immature Gran # (Auto) Sodium Potassium Chloride Carbon Dioxide Anion Gap BUN Creatinine Est Cr Clr Drug Dosing Est GFR ( Amer) Est GFR (Non-Af Amer) BUN/Creatinine Ratio Glucose Calcium Magnesium Total Bilirubin AST ALT Alkaline Phosphatase Troponin I High Sens 49.6 H D C-Reactive Protein < 0.50 Total Protein Albumin Globulin Albumin/Globulin Ratio Procalcitonin < 0.05 TSH Urine Color Yellow Urine Appearance Clear Urine pH 5.0 Ur Specific [place] 1.014 Urine Protein 2+ H Urine Glucose (UA) Trace H Urine Ketones Negative Urine Blood Negative Urine Nitrite Negative Urine Bilirubin Negative Urine Urobilinogen Negative Ur Leukocyte Esterase Negative Urine WBC (Auto) 1-5 Urine RBC (Auto) 0-4 U Hyaline Cast (Auto) 10-30 H U Epithel Cells (Auto) >30 H Urine Bacteria (Auto) Negative Ur Renal Epithelial Cell Not Reportable Urine Mucus Present A Diagnostic Findings Chest X-Ray 05/29/23 05:54 XR chest 1V portable CLINICAL HISTORY: syncope TECHNIQUE: Single frontal radiograph of the chest was obtained. Comparison: Comparison is made to chest radiograph 02/22/2023 FINDINGS: Median sternotomy wires are unchanged. Cardiomegaly is noted. The lungs are clear. No evidence of pleural effusion or pneumothorax. IMPRESSION: No acute chest disease. Cardiomegaly is noted. ACT 112: Negative or not required by law. Electronically signed by: Eliecer Smith M.D. 05/29/2023 7:12 AM 1st EKG - NSR, RBBB, no ST changes 2nd EKG - NSR, RBBB, I/AVL T wave inversions; V4-V6 T wave inversions Code Status & VTE Plan Code Status full code PG Care Time/CCT Total # of Minutes Spent Total Time Spent with Patient: Total time spent is greater than 50% in coordination of care (as documented) at patient's floor/unit and/or counseling patient: Coding Level of Care Code 77654 INT INP/OBS CARE 3/75MIN Diagnoses Syncope R55 Hypotension I95.9 Elevated troponin R77.8 Abnormal EKG R94.31 Leukocytosis D72.829 Coronary artery disease I25.10 Hypertension I10 GERD (gastroesophageal reflux disease) K21.9 Status post right partial knee replacement Z96.651
[2023-05-29 08:14] LABS: C Reactive Protein < 0.50 mg/dl (0-0.5)
[2023-05-29 08:20] LABS: Troponin I High Sensitivity 49.6 pg/ml (0-20)
[2023-05-29] MEDS ORDERED: LACTATED RINGER'S 1,000 ML IV SCH (08:30)
[2023-05-29] MEDS ORDERED: IOVERSOL 350 MG 125mL Prefilled Syringe IV ONE (08:55)
--- NOTE | 2023-05-29 09:05 | CT Scan Report ---
CT angio chest PE protocol CLINICAL HISTORY: syncope, recent knee replacement, travel; eval PE TECHNIQUE: Multidetector row helical CT of the chest was performed with angiographic protocol. [place] l and sagittal reformations were obtained. Coronal and sagittal MIPS were obtained from the axial ariela a set and were submitted for review. Automated dose lowering techniques and/or adjustment according to patient size were utilized for this exam. CT DOSE: 838.02 mGy.cm Comparison: None available at the time of this dictation. FINDINGS: Lungs and pleura: Normal. Heart and pericardium: Heart size is normal. No pericardial effusion. Vessels: No evidence of pulmonary embolism. Mediastinum and melanie: Subcentimeter lymph nodes are seen. Chest wall and lower neck: Unremarkable. Abdomen: Unremarkable. Bones: Degenerative changes in the thoracic spine. IMPRESSION: No acute abnormality and in particular no evidence of pulmonary embolus. ACT 112: Negative or not required by law. Electronically signed by: Eliecer Smith M.D. 05/29/2023 9:03 AM
[2023-05-29 10:24] LABS: Lyme Ab IgG w/WB Rflx Negative (Negative); Lyme Ab IgM w/WB Rflx Negative (Negative)
[2023-05-29] MEDS ORDERED: ONDANSETRON INJ 2 MG/ML 2 ML VIAL IV PRN (11:47)
[2023-05-29] MEDS ORDERED: ACETAMINOPHEN 500 MG TAB PO PRN (11:47)
[2023-05-29] MEDS ORDERED: NITROGLYCERIN SL 0.4 MG/TAB TAB SL PRN (11:47)
--- NOTE | 2023-05-29 13:45 | XCELERA ---
[id number] \\[id number]
--- NOTE | 2023-05-29 17:35 | Cardiology Consultation ---
Date of Consultation May 29, 2023 Assessment & Plan (1) Abnormal EKG: (2) Elevated troponin: (3) Syncope: (4) Coronary artery disease: Plan 1. Syncope: The features of his episode are consistent with high vagal tone. No sense of palpitation. He had fairly extended symptoms without documented arrhythmia. Unlikely to be related to an abnormal rhythm given the duration of symptoms. No objective evidence of high-degree conduction disease and in the setting of preserved LV function think he is low risk for more malignant arrhythmias. I do not think he requires any additional testing in this regard. Standard precautions are recommended which include maintaining good hydration, recognizing symptoms and assuming a supine or sitting position when they occur. 2. Coronary disease: No current symptoms. Vein grafts in 2014. He should continue aggressive secondary prevention with high-dose rosuvastatin, Zetia and a daily aspirin. 3. Abnormal EKG: He has diffuse T-wave inversions. This is in the setting of first-degree AV block and right bundle branch block. However, prior EKGs are similar. With some conduction disease there is a concern for more high-grade AV block. However, there has been no documentation of this. His symptoms were not consistent with transient high-degree AV block. History of Present Illness Reason for Consultation: Syncope, abnormal EKG, elevated troponin Requesting Physician: Gabbie Attending Physician: Pop Cartwright MD History of Present Illness The patient is a 68-year-old gentleman with history of coronary artery disease having undergone surgical revascularization quite remotely. 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 He reported repeat cardiac catheterization in 2013 without need for intervention. Yesterday the patient experienced an episode of syncope. He had just use the restroom to urinate. Was proceeding back to his bed when he had significant itching in both palms. He was itching quite aggressively began to feel somewhat dizzy. He laid down in bed and the symptoms improved to some degree. He attempted to stand up at that point became severely dizzy and had an episode of syncope. Upon awakening he felt very weak and tired. He had significant diarrhea. He was weak enough that he could not get off the floor. EMS was called and he was noted to be hypotensive. To the emergency room. He stated he felt much better afterwards. He has not had a recurrence of the symptoms. He cannot recall a similar episode in the past. Generally speaking is a very active individual does not have exertional symptoms. He denies exertional dyspnea or chest discomfort again, not generally dizzy or lightheaded. No sense of palpitation. No prior history of syncope. Allergies Allergy/AdvReac Type Severity Reaction Status Date / Time No Known Drug Allergies Allergy Unknown NONE Verified 03/13/23 06:51 Home Medications Medication Instructions Recorded Confirmed Type cholecalciferol (vitamin D3) 125 See Rx Instructions .Route .COMPLEX 02/21/23 05/29/23 History mcg (5,000 unit) tablet (Vitamin D3) ezetimibe 10 mg tablet (Zetia) 10 mg PO HS 02/21/23 05/29/23 History lisinopril 10 mg tablet 10 mg PO HS 02/21/23 05/29/23 History rosuvastatin 20 mg tablet 20 mg PO HS 02/21/23 05/29/23 History metoprolol succinate 50 mg 50 mg PO DAILY 03/13/23 05/29/23 History tablet,extended release 24 hr acetaminophen 500 mg tablet 1,000 mg PO TID PRN Pain 05/29/23 05/29/23 History (Tylenol Extra Strength) aspirin 81 mg tablet 81 mg PO DAILY 05/29/23 05/29/23 History Patient History Medical History (Updated 05/29/23 @ 08:52 by Pop Cartwright MD) Anxiety no meds Coronary artery disease S/p stents prior to 2002 S/p 3 vessel CABG 2002 No longer follows with cardio (only PRN) Encounter for pre-operative examination GERD (gastroesophageal reflux disease) Well controlled and stable Hearing deficit Hyperlipidemia Hypertension Lumbar degenerative disc disease (09/01/14) Lumbar postlaminectomy syndrome Sacroiliac joint dysfunction History of right SI joint fusion Surgical History (Updated 05/29/23 @ 08:52 by Pop Cartwright MD) History of cardiac cath x5?--had stents placed (unsure how many--last had stents placed prior to triple bypass in 2002) last heart cath 2013@ [facility] (no stents placed) History of colonoscopy History of coronary artery bypass graft triple bypass @ 2002 @ [facility] in [place] History of lumbar fusion L4-5 - 2013 - Dr Arvind Concepcion History of tooth extraction S/P right knee arthroscopy Status post right partial knee replacement 02/2023 - Dr See Causey Family History (Updated 05/29/23 @ 08:12 by Pop Cartwright MD) Father Heart disease pacemaker Mother Diabetes Brother Coronary heart disease CABG Other No family history of adverse response to anesthesia Denies family history of Deep vein thrombosis Pulmonary embolism Social History (Updated 05/29/23 @ 08:13 by Pop Cartwright MD) Smoking Status: Never smoker Second Hand Exposure: No; Do You Dip or Chew Tobacco: No; Tobacco Cessation Education Requested by Patient: No Hx Alcohol Use: No Hx Substance Use: No Preferred Language: Faroese Communication Ability: Effective Banking Consultant Required: No Beliefs That Will Affect Care: None marital status: Current Living Situation: Spouse Current Living Situation Comment: spouse, and lives with grand daughter and 's cousin current occupational status: employed 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 Mood and affect appeared normal. He answered all questions appropriately. HEENT: Pupils are equal and reactive to light and accommodation. Extraocular movements are intact. The sclerae are anicteric. Neuro: Cranial nerves intact Chest: Well-healed sternotomy scar Lungs: Clear to auscultation bilaterally. He has good air movement without use of accessory muscles. No rales wheezes or rhonchi. Cardiac: Heart demonstrates a regular rate and rhythm. Normal S1 and S2. No murmurs on examination. Pulses: The patient has palpable radial pulses bilaterally that are equal in intensity Extremities: There was no evidence of hypoperfusion. There is no cyanosis or clubbing. There is no edema. Skin: I did not appreciate any rashes on examination today. Results & Data Vital Signs (Past 12 Hours) Vital Signs Temp Pulse Pulse Pulse Resp BP BP 05/29/23 15:30 36.6 C 60 22 154/79 H 05/29/23 12:30 60 05/29/23 11:45 36.7 C 58 L 18 149/85 H 05/29/23 11:18 58 L 16 112/53 L 08/07/23 09:23 61 16 05/29/23 07:40 70 21 05/29/23 07:30 62 18 05/29/23 07:30 108/53 L 05/29/23 07:20 67 16 05/29/23 07:10 70 17 05/29/23 07:00 65 18 05/29/23 07:00 109/60 05/29/23 06:50 65 20 05/29/23 06:40 65 19 05/29/23 06:30 70 20 05/29/23 06:30 117/70 05/29/23 06:20 71 20 05/29/23 06:10 67 19 05/29/23 06:00 71 18 05/29/23 06:00 98/63 L 05/29/23 05:50 68 16 05/29/23 05:40 78 23 05/29/23 05:30 80 18 05/29/23 05:30 90/67 L 05/29/23 05:30 90/67 L 05/29/23 06:30 71 18 05/29/23 06:00 71 17 05/29/23 05:30 67 17 BP Pulse Ox O2 Del Method 05/29/23 15:30 96 Room Air 05/29/23 12:30 05/29/23 11:45 96 Room Air 05/29/23 11:18 96 Room Air 05/29/23 09:23 100 Room Air 05/29/23 07:40 96 05/29/23 07:30 95 05/29/23 07:30 05/29/23 07:20 94 05/29/23 07:10 95 05/29/23 07:00 95 05/29/23 07:00 05/29/23 06:50 97 05/29/23 06:40 98 05/29/23 06:30 96 05/29/23 06:30 05/29/23 06:20 96 05/29/23 06:10 95 05/29/23 06:00 94 05/29/23 06:00 05/29/23 05:50 96 05/29/23 05:40 94 05/29/23 05:30 93 05/29/23 05:30 05/29/23 05:30 05/29/23 06:30 117/70 95 Room Air 05/29/23 06:00 98/63 L 97 Room Air 05/29/23 05:30 90/67 L 96 Room Air Laboratory Results Abnormal Lab Results 05/29/23 05/29/23 05/29/23 04:17 04:17 04:17 WBC 16.62 H RBC 5.58 Hgb 17.3 Hct 51.4 MCV 92.1 MCH 31.0 MCHC 33.7 RDW Std Deviation 40.9 RDW Coeff of Josselin 12.1 Plt Count 310 MPV 8.2 L Immature Gran % (Auto) 0.4 Neut % (Auto) 82.5 Lymph % (Auto) 11.1 Bent % (Auto) 5.1 Eos % (Auto) 0.7 Baso % (Auto) 0.2 Neut # (Auto) 13.69 H Lymph # (Auto) 1.85 Bent # (Auto) 0.85 H Eos # (Auto) 0.12 Baso # (Auto) 0.04 Immature Gran # (Auto) 0.07 Sodium 138 Potassium 3.8 Chloride 110 H Carbon Dioxide 20 L Anion Gap 8 BUN 16 Creatinine 0.84 Est Cr Clr Drug Dosing 78.1 Est GFR ( Amer) 105.7 Est GFR (Non-Af Amer) 91.2 BUN/Creatinine Ratio 19.0 Glucose 130 H Calcium 8.9 Magnesium 2.0 Total Bilirubin 0.4 AST 24 ALT 19 Alkaline Phosphatase 73 Troponin I High Sens 18.3 C-Reactive Protein Total Protein 7.1 Albumin 4.2 Globulin 2.9 Albumin/Globulin Ratio 1.4 Procalcitonin TSH 0.801 Urine Color Urine Appearance Urine pH Ur Specific [place] Urine Protein Urine Glucose (UA) Urine Ketones Urine Blood Urine Nitrite Urine Bilirubin Urine Urobilinogen Ur Leukocyte Esterase Urine WBC (Auto) Urine RBC (Auto) U Hyaline Cast (Auto) U Epithel Cells (Auto) Urine Bacteria (Auto) Ur Renal Epithelial Cell Urine Mucus Anaplasma Smear Lyme Disease IgG Ab Lyme Disease IgM Ab SARS-CoV-2, RNA, NAAT 05/29/23 05/29/23 05/29/23 04:17 04:17 04:17 WBC RBC Hgb Hct MCV MCH MCHC RDW Std Deviation RDW Coeff of Josselin Plt Count MPV Immature Gran % (Auto) Neut % (Auto) Lymph % (Auto) Bent % (Auto) Eos % (Auto) Baso % (Auto) Neut # (Auto) Lymph # (Auto) Bent # (Auto) Eos # (Auto) Baso # (Auto) Immature Gran # (Auto) Sodium Potassium Chloride Carbon Dioxide Anion Gap BUN Creatinine Est Cr Clr Drug Dosing Est GFR ( Amer) Est GFR (Non-Af Amer) BUN/Creatinine Ratio Glucose Calcium Magnesium Total Bilirubin AST ALT Alkaline Phosphatase Troponin I High Sens C-Reactive Protein Total Protein Albumin Globulin Albumin/Globulin Ratio Procalcitonin < 0.05 TSH Urine Color Urine Appearance Urine pH Ur Specific [place] Urine Protein Urine Glucose (UA) Urine Ketones Urine Blood Urine Nitrite Urine Bilirubin Urine Urobilinogen Ur Leukocyte Esterase Urine WBC (Auto) Urine RBC (Auto) U Hyaline Cast (Auto) U Epithel Cells (Auto) Urine Bacteria (Auto) Ur Renal Epithelial Cell Urine Mucus Anaplasma Smear See Comment Lyme Disease IgG Ab Negative Lyme Disease IgM Ab Negative SARS-CoV-2, RNA, NAAT 05/29/23 05/29/23 05/29/23 05:06 07:38 12:25 WBC RBC Hgb Hct MCV MCH MCHC RDW Std Deviation RDW Coeff of Josselin Plt Count MPV Immature Gran % (Auto) Neut % (Auto) Lymph % (Auto) Bent % (Auto) Eos % (Auto) Baso % (Auto) Neut # (Auto) Lymph # (Auto) Bent # (Auto) Eos # (Auto) Baso # (Auto) Immature Gran # (Auto) Sodium Potassium Chloride Carbon Dioxide Anion Gap BUN Creatinine Est Cr Clr Drug Dosing Est GFR ( Amer) Est GFR (Non-Af Amer) BUN/Creatinine Ratio Glucose Calcium Magnesium Total Bilirubin AST ALT Alkaline Phosphatase Troponin I High Sens 49.6 H D 46.5 H C-Reactive Protein < 0.50 Total Protein Albumin Globulin Albumin/Globulin Ratio Procalcitonin TSH Urine Color Yellow Urine Appearance Clear Urine pH 5.0 Ur Specific [place] 1.014 Urine Protein 2+ H Urine Glucose (UA) Trace H Urine Ketones Negative Urine Blood Negative Urine Nitrite Negative Urine Bilirubin Negative Urine Urobilinogen Negative Ur Leukocyte Esterase Negative Urine WBC (Auto) 1-5 Urine RBC (Auto) 0-4 U Hyaline Cast (Auto) 10-30 H U Epithel Cells (Auto) >30 H Urine Bacteria (Auto) Negative Ur Renal Epithelial Cell Not Reportable Urine Mucus Present A Anaplasma Smear Lyme Disease IgG Ab Lyme Disease IgM Ab SARS-CoV-2, RNA, NAAT 05/29/23 Unknown WBC RBC Hgb Hct MCV MCH MCHC RDW Std Deviation RDW Coeff of Josselin Plt Count MPV Immature Gran % (Auto) Neut % (Auto) Lymph % (Auto) Bent % (Auto) Eos % (Auto) Baso % (Auto) Neut # (Auto) Lymph # (Auto) Bent # (Auto) Eos # (Auto) Baso # (Auto) Immature Gran # (Auto) Sodium Potassium Chloride Carbon Dioxide Anion Gap BUN Creatinine Est Cr Clr Drug Dosing Est GFR ( Amer) Est GFR (Non-Af Amer) BUN/Creatinine Ratio Glucose Calcium Magnesium Total Bilirubin AST ALT Alkaline Phosphatase Troponin I High Sens C-Reactive Protein Total Protein Albumin Globulin Albumin/Globulin Ratio Procalcitonin TSH Urine Color Urine Appearance Urine pH Ur Specific [place] Urine Protein Urine Glucose (UA) Urine Ketones Urine Blood Urine Nitrite Urine Bilirubin Urine Urobilinogen Ur Leukocyte Esterase Urine WBC (Auto) Urine RBC (Auto) U Hyaline Cast (Auto) U Epithel Cells (Auto) Urine Bacteria (Auto) Ur Renal Epithelial Cell Urine Mucus Anaplasma Smear Lyme Disease IgG Ab Lyme Disease IgM Ab SARS-CoV-2, RNA, NAAT NEGATIVE Diagnostic Findings Echocardiogram performed today revealed normal LV systolic function. Mild LVH. Stage I diastolic dysfunction. Normal LV wall motion. No significant valvular heart disease. Cardiac catheterization 2014: Patent BLACK to LAD, patent saphenous vein graft to diagonal, patent saphenous vein graft to RCA. Occluded LAD and RCA. Elevated LV EP and mildly reduced LV systolic function estimated at ejection fraction of 45% ECG Additional Comments: Normal sinus rhythm with 1st degree AV block, right bundle branch block and T-w ave inversions PG Care Time/CCT Total # of Minutes Spent Total Time Spent with Patient: Total time spent is greater than 50% in coordination of care (as documented) at patient's floor/unit and/or counseling patient: Coding Level of Care Code 88835 INT INP/OBS CARE 3/75MIN Diagnoses Abnormal EKG R94.31 Elevated troponin R77.8 Syncope R55 Coronary artery disease I25.10
--- NOTE | 2023-05-29 19:24 | Discharge Summary ---
Date of Service date of admission - May 29, 2023 date of discharge - May 29, 2023 Admission HPI Per Admitting Provider 68yo male with history of CAD, s/p multiple stents as well as 3-vessel CABG in 2002 at [facility] in [place] (last cardiac cath 2013 - no intervention), recent right partial knee replacement late February 2023, hyperlipidemia, and HTN presents after having had dizziness followed by syncope overnight. Patient states he was quite physically active yesterday. 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 He then picked blueberries yesterday evening. Throughout the day yesterday he had very little to drink (about 12 ounces of liquid only). He felt fine throughout the day - no chest pain, dyspnea, dizziness, flu-like symptoms, fever, etc. He went to bed last pm in usual fashion and woke up in the middle of the night to use the bathroom. He voided, washed his hands, and upon doing so his hands were burning and itchy. He walked back to the bedroom and felt dizzy/lightheaded. He got back in bed and the dizziness passed. A few minutes later he got out of bed again and this time felt dizzy and proceeded to pass out and collapsed to the floor. He lost consciousness for about 20-30 seconds. Upon awakening he had mild stomach upset and had an incredible urge to defecate. He had 2 diarrheal episodes on the floor because he was too weak to get up. EMS was summoned to his home, and upon EMS arrival his SBP was in the 80s by report. He received IV fluids en route to [facility]. Patient reports no chest pain or dyspnea since arriving to [facility]. The mild nausea and stomach discomfort he had had earlier in the morning has resolved. He denies any recent limiting exertional chest pain or dyspnea. In fact on Monday he split wood for several hours without limitation. Despite his cardiac history he has not had any cardiac follow-up since 2013. He does take asa 81mg daily. In the ER his initial EKG showed NSR with RBBB. 2nd EKG showed lateral T wave changes in I/AVL and V4-V6 - new from prior EKG earlier in the morning. Principal Diagnosis Syncope - likely vasovagal Discharge Exam gen - NAD skin - tanned/sunburn on face; no rash neck - no JVD heart - RRR, s1 s2, no murmur lungs - CTA b/l abd - soft NT ND BS+ ext - no edema, pulses 2+ b/l musculo - right knee incision well-healed Discharge Data Allergies Allergy/AdvReac Type Severity Reaction Status Date / Time No Known Drug Allergies Allergy Unknown NONE Verified 03/13/23 06:51 Consultations [facility] - Barrett Sanchez MD Procedures Performed Echocardiogram: Ordered Studies Chest X-Ray 05/29/23 05:54 XR chest 1V portable CLINICAL HISTORY: syncope TECHNIQUE: Single frontal radiograph of the chest was obtained. Comparison: Comparison is made to chest radiograph 02/22/2023 FINDINGS: Median sternotomy wires are unchanged. Cardiomegaly is noted. The lungs are clear. No evidence of pleural effusion or pneumothorax. IMPRESSION: No acute chest disease. Cardiomegaly is noted. ACT 112: Negative or not required by law. Electronically signed by: Eliecer Smith M.D. 05/29/2023 7:12 AM Chest CTA 05/29/23 08:30 CT angio chest PE protocol CLINICAL HISTORY: syncope, recent knee replacement, travel; eval PE TECHNIQUE: Multidetector row helical CT of the chest was performed with angiographic protocol. Coronal and sagittal reformations were obtained. Coronal and sagittal MIPS were obtained from the axial data set and were submitted for review. Automated dose lowering techniques and/or adjustment according to patient size were utilized for this exam. CT DOSE: 838.02 mGy.cm Comparison: None available at the time of this dictation. FINDINGS: Lungs and pleura: Normal. Heart and pericardium: Heart size is normal. No pericardial effusion. Vessels: No evidence of pulmonary embolism. Mediastinum and melanie: Subcentimeter lymph nodes are seen. Chest wall and lower neck: Unremarkable. Abdomen: Unremarkable. Bones: Degenerative changes in the thoracic spine. IMPRESSION: No acute abnormality and in particular no evidence of pulmonary embolus. ACT 112: Negative or not required by law. Electronically signed by: Eliecer Smith M.D. 05/29/2023 9:03 AM Hospital Course (1) Syncope: The patient had prodromal symptoms prior to his episode of syncope (lightheadedness, hands felt warm, etc). He did not have ischemic symptoms prior to the episode. He did not have palpitations prior to the episode. Following the syncopal event he regained consciousness rather quickly. The patient had been very physically active in the 48 hours prior to this event and he admitted to poor liquid intake during that same time period. Dr Barrett Sanchez from [facility] saw the patient in consult and felt that his syncopal event was due to vasovagal physiology. Ischemic event/ACS was not suspected. Arrhythmia was not suspected (during his brief stay telemetry was normal). No PE was seen on CTA chest. No infectious etiology was seen either. He was given IV fluids in the ER and upon admission to the floor. Orthostatic BPs were normal just prior to discharge. He ambulated around the telemetry unit and had no dizziness or lightheadedness either. He was counseled to hydrate well on days of being physically active especially when outside in the heat. (2) Abnormal EKG: he has lateral ST changes on EKG the lateral ST segments did change from one EKG to the next during his brief stay but old EKGs showed these lateral ST changes as well Dr Sanchze from [facility] felt that the EKG changes were not indicative of ACS but rather were old/stable (3) Coronary artery disease: prior h/o stents prior h/o CABG early see #4 below ACS NOT suspected he never had ischemic symptoms he has lateral ST changes on EKG but they are chronic based on records echocardiogram showed preserved EF and normal LV wall motion he will continue once daily aspirin, lisinopril, statin and metoprolol succinate the patient has not been followed by cardiology in many years and he was encouraged to see [facility] for routine cardiac care moving forward a follow-up appointment will be made with Dr Sanchez for that reason (4) Elevated troponin: HS troponin was elevated at 49, falling to 46 on the next check Was seen by Dr Barrett Sanchez, [facility] ACS was NOT suspected Minimally elevated troponin was felt 2nd to his syncopal episode/hypotension (5) Hypertension: since hypotension is resolved can resume lisinopril and metoprolol succinate at discharge (6) Hypotension: 2nd to vasovagal syncopal episode in the setting of volume depletion hypotension resolved by time of discharge (7) Leukocytosis: likely 2nd to syncopal episode no evidence of any infectious process while here no pneumonia or UTI lyme screen was negative anaplasmosis smear was negative (8) Status post right partial knee replacement: 02/2023 Dr See Causey incision fully healed no issues while here CTA chest without any PE Total Time Total Time Spent Total Time Spent (In Minutes): 90 (between admission history/PE and discharge activities) Discharge Plan Discharge Items Patient Disposition: Home - Self-Care Reason For Visit: SYNCOPE Discharge Diagnosis: 1. syncope (passing out spell) - due to "vasovagal" episode 2. elevated troponin level - due to syncope and low blood pressure 3. hypotension/low blood pressure - due to vasovagal syncope episode Activity: Resume your previous activity Lifting: Gradually increase as tolerated Exercise/Sports: Rest today Driving/Machine Use: Resume 1 day after discharge Non-emergency contact: Primary Care Provider and Working Manager Call non-emergency contact if: you have any medication questions and your symptoms worsen Follow-up/Referrals: Barrett Sanchez MD [Physician] - 06/12/23 10:30 am (please establish care with Dr Sanchez or one of his partners for ongoing heart care [employer] Operator will call you in am with you date/time of appt) Frederick Pantoja [Primary Care Provider] - 06/01/23 11:15 am (5-7 days [employer] Operator will call you in am with date/time of your appt.) Diet: Heart Healthy Addtl Attending Provider Instructions: Mr Castillo, You were hospitalized after having had an episode of syncope at home. Syncope is the medical term for passing out. The cause of your syncopal episode was a "vasovagal" spell which is one of the most common causes of syncope. See handout about vasovagal syncope. At the time of your event your blood pressure was low, and your blood pressure was low upon arrival to [facility]. You received IV fluids which resolved the low blood pressure. The blood work for your heart - a "troponin level" - was minimally elevated. There are many causes of troponin elevations beyond a heart attack event. Severely elevated blood pressure, low blood pressure, infections, trauma, physical stress, etc all can cause the troponin to rise. In your case the tro ponin was minimally elevated likely due to your syncopal event and the low blood pressure. We did not find evidence of any heart attack while here. Your echocardiogram of your heart was normal. Your telemetry (heart monitoring) during your brief stay was normal. Testing for Lyme disease was negative. CT scan of your chest did not show blood clots, pneumonia, or other abnormalities. Your urinalysis was normal - thus, there was no evidence of any urinary infection. I suspect that dehydration led to your vasovagal event. You were quite physically active over the weekend and did not consume a lot of liquids. This will often precipitate vasovagal events/fainting spells/etc. We have made no changes in your medications at this time. Be sure to stay well-hydrated when doing physical labor - especially when outdoors and in the sun/heat. Please see your family doctor within 5-7 days, and I would encourage you to establish care with a wellness director for routine checks in light of your heart history. Return to [facility] if - * you have fevers over 100 degrees * you have recurrent dizziness/lightheadedness/syncope * you have palpitations / heart racing / fluttering * you have chest pains * you are short of breath * any other concerns It was our pleasure to care for you, Dr Cartwright Pending Studies at Discharge: Yes Studies:: Anaplasmosis testing (a tick-borne disease) Stand-Alone Forms: My [facility], Smoking Cessation Medications and DC Order Prescriptions: Continued aspirin 81 mg Tablet 81 mg PO DAILY acetaminophen [Tylenol Extra Strength] 500 mg tablet 1,000 mg PO TID PRN (Reason: Pain) Rx Instructions: using prn lisinopril 10 mg Tablet 10 mg PO HS ezetimibe [Zetia] 10 mg Tablet 10 mg PO HS rosuvastatin 20 mg Tablet 20 mg PO HS cholecalciferol (vitamin D3) [Vitamin D3] 125 mcg (5,000 unit) Tablet See Rx Instructions .ROUTE .COMPLEX Rx Instructions: Take 5,000 units by mouth every other day metoprolol succinate 50 mg Tablet Extended Release 24 Hr 50 mg PO DAILY Discharge Orders: Discharge Order (Routine); Ordered 05/29/23 Ordered By: Pop Shafer/Other Patient Handouts: Understanding Vasovagal Syncope Admission Data Admit Date/Time: 05/29/23 08:57 Attending Provider: Pop Cartwright Admit Provider: Pop Cartwright Primary Care Provider: Frederick Pantoja Other Providers: Barrett Sanchez Other Interventions: Discharge Summary Assessment (RN) Last Done: 05/29/23 19:36 Coding Level of Care Code INP/OBS EV SAME DAY LV 3,85MIN Diagnoses Syncope R55 Abnormal EKG R94.31 Coronary artery disease I25.10 Elevated troponin R77.8 Hypertension I10 Hypotension I95.9 Leukocytosis D72.829 Status post right partial knee replacement Z96.651
--- NOTE | 2023-05-29 19:31 | Electrocardiogram Report ---
Test Reason : Blood Pressure : / mmHG Vent. Rate : 087 BPM Atrial Rate : 087 BPM P-R Int : 174 ms QRS Dur : 136 ms QT Int : 414 ms P-R-T Axes : 043 -31 062 degrees QTc Int : 498 ms Normal sinus rhythm Left axis deviation Right bundle branch block Abnormal ECG When compared with ECG of 22-FEB-2023 11:07, Vent. rate has increased BY 37 BPM T wave inversion no longer evident in Inferior leads T wave inversion no longer evident in Lateral leads QT has lengthened Confirmed by Barrett Sanchez ([id number]) on 05/29/2023 7:31:24 PM Referred By: REFERRED SELF Confirmed By:Curt Sanchez
--- NOTE | 2023-05-29 19:33 | Electrocardiogram Report ---
Test Reason : Blood Pressure : / mmHG Vent. Rate : 069 BPM Atrial Rate : 069 BPM P-R Int : 170 ms QRS Dur : 136 ms QT Int : 424 ms P-R-T Axes : 066 -21 157 degrees QTc Int : 454 ms Normal sinus rhythm Right bundle branch block T wave abnormality, consider lateral ischemia Abnormal ECG When compared with ECG of 29-MAY-2023 03:35, (unconfirmed) T wave inversion now evident in Lateral leads QT has shortened Confirmed by Barrett Sanchez ([id number]) on 05/29/2023 7:33:04 PM Referred By: REFERRED SELF Confirmed By:Curt Sanchez
--- NOTE | 2023-05-29 19:37 | Electrocardiogram Report ---
Test Reason : Blood Pressure : / mmHG Vent. Rate : 073 BPM Atrial Rate : 073 BPM P-R Int : 206 ms QRS Dur : 138 ms QT Int : 414 ms P-R-T Axes : 041 -18 166 degrees QTc Int : 456 ms Normal sinus rhythm Right bundle branch block T wave abnormality, consider lateral ischemia Abnormal ECG When compared with ECG of 29-MAY-2023 06:03, (unconfirmed) No significant change was found Confirmed by Barrett Sanchez ([id number] on 05/29/2023 7:37:11 PM Referred By: REFERRED SELF Confirmed By:Curt Sanchez
[2023-05-29] MEDS ORDERED: CHOLECALCIFEROL 5,000 UNITS 125 MCG TAB PO SCH (21:00)
[2023-05-29] MEDS ORDERED: ASCORBIC ACID 500 MG TAB PO SCH (21:00)
[2023-05-29] MEDS ORDERED: ROSUVASTATIN CALCIUM 20 MG TAB PO SCH (21:00)
[2023-05-29] MEDS ORDERED: EZETIMIBE 10 MG TAB PO SCH (21:00)
[2023-05-30] MEDS ORDERED: ASPIRIN 81 MG ECTAB PO SCH (09:00)
== END 2023-05-29 19:56 | disposition home or self-care (01) ==
LOC: ED 03:28 → 2S 08:57 → INTOOBSV 08:57 → 2S 11:18

== ENCOUNTER 2023-06-18 23:08 | Observation (INO) ==
[2023-06-18] MEDS ORDERED: ASPIRIN CHEW 324 MG PO STA (23:14)
--- NOTE | 2023-06-18 23:22 | Emergency Department Note ---
Impression & Plan Atypical chest pain, Elevated troponin, CAD (coronary atherosclerotic disease) ED Provider Note CHIEF COMPLAINT: Chest pain HISTORY OF PRESENT ILLNESS: This 68-year-old male patient with past medical history of coronary artery disease status post CABG, diabetes mellitus, near syncopal events, partial knee replacement on the right, hypertension, hyperlipidemia presents to the emergency department with c/o chest pressure and tingling in the bilateral upper extremities. He states he was eating ice cream at the time of the discomfort. Patient was here a few weeks ago with similar symptoms. He states last week his hands were burning, today they got numb. He denies any discomfort at this time. He denies shortness of breath, diaphoresis, nausea and vomiting. REVIEW OF SYSTEMS: A review of systems was performed with positives and pertinent negatives listed in the history of present illness. 10 systems were reviewed and are otherwise negative. ALLERGIES: see below MEDICATIONS: see below PMH: see below SOCIAL HISTORY: see below DDx: Cardiac ischemia, aortic dissection, pulmonary embolism, pneumothorax, myocarditis, pericarditis, GERD as well as other pathologies. PHYSICAL EXAM: Vital signs reviewed. General: Well-appearing 68 yo male, in no significant distress. HEENT: No scleral icterus, PERRLA, neck supple. Atraumatic. Cardiovascular: Regular rate and rhythm, no extra sounds. Pulmonary: Clear to auscultation bilaterally, normal work of breathing. Abdomen: Soft, nontender, nondistended, positive bowel sounds. Musculoskeletal: Atraumatic, no peripheral edema. Neurologic: Patient awake alert and oriented x 3, speech is clear Skin: Warm, dry, no rash EMERGENCY DEPARTMENT COURSE/MDM: This patient was evaluated and appeared to be in no significant distress. IV access was obtained and laboratory work was drawn. External medical records were reviewed. EKG reveals no evidence of acute ischemia. Patient did receive aspirin. Patient's initial troponin is elevated but just above the threshold. This is down from 2 weeks ago. Repeat troponin was performed and is trending upward. Chest x-ray reveals no evidence of failure or focal lung consolidation. Given the patient's complex medical history and recurrent discomfort, he was evaluated by the hospitalist service for admission and further management. MONITORING: An order for cardiac monitoring was placed and the patient is noted to be in a NSR at 80 beats per minute. RADIOLOGY: Chest x-ray to my interpretation reveals no evidence of focal lung consolidation or failure. Otherwise defer to radiology's overread. EKG: To my interpretation reveals a normal sinus rhythm at 81 bpm, right bundle branch block. Repolarization abnormality noted in the lateral leads. Normal ST segments. No PVC, no PAC. When compared to previous dated May 29, 2023, T wave inversion resolved in the inferior leads, more significant in the anterior leads and less significant laterally. DISPOSITION: Home Past Med/Surg History Medical History (Updated 06/19/23 @ 19:37 by Marlena Epstein MD) Abnormal EKG Anxiety no meds B12 deficiency Coronary artery disease S/p stents prior to 2002 S/p 3 vessel CABG 2002 No longer follows with cardio (only PRN) Diabetes mellitus type 2 in obese Elevated troponin Encounter for pre-operative examination GERD (gastroesophageal reflux disease) Well controlled and stable Hearing deficit Hyperlipidemia Hypertension Hypotension Leukocytosis Lumbar degenerative disc disease (09/01/14) Lumbar postlaminectomy syndrome Sacroiliac joint dysfunction History of right SI joint fusion Syncope Surgical History History of cardiac cath x5?--had stents placed (unsure how many--last had stents placed prior to triple bypass in 2002) last heart cath 2013@ [facility] (no stents placed) History of colonoscopy History of coronary artery bypass graft triple bypass @ 2002 @ [facility] in [place] History of lumbar fusion L4-5 - 2013 - Dr Arvind Concepcion History of tooth extraction S/P right knee arthroscopy Status post right partial knee replacement 02/2023 - Dr See Causey Family History Father Heart disease pacemaker Mother Diabetes Brother Coronary heart disease CABG Other No family history of adverse response to anesthesia Denies family history of Deep vein thrombosis Pulmonary embolism Social History Smoking Status: Never smoker Second Hand Exposure: No; Do You Dip or Chew Tobacco: No; Hx Alcohol Use: No Hx Substance Use: No Preferred Language: Nepali Communication Ability: Effective 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 Beliefs That Will Affect Care: None marital status: Current Living Situation: Spouse Current Living Situation Comment: spouse, and lives with grand daughter and 's cousin current occupational status: employed 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[facility]; 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 How many Children do You have: 3 Feels Safe at Home: Yes Assistive Devices: Glasses and Hearing Aid - Bilateral Allergies Allergies Allergy/AdvReac Type Severity Reaction Status Date / Time No Known Drug Allergies Allergy Unknown NONE Verified 06/12/23 10:37 Home Meds Home Medications Medication Instructions Recorded Confirmed cholecalciferol (vitamin D3) 125 See Rx Instructions .Route .COMPLEX 02/21/23 0 06/18/23 mcg (5,000 unit) tablet (Vitamin D3) ezetimibe 10 mg tablet (Zetia) 10 mg PO HS 02/21/23 06/18/23 rosuvastatin 20 mg tablet 20 mg PO HS 02/21/23 06/18/23 metoprolol succinate 50 mg 50 mg PO DAILY 03/13/23 06/18/23 tablet,extended release 24 hr acetaminophen 500 mg tablet 1,000 mg PO TID PRN Pain 05/29/23 06/18/23 (Tylenol Extra Strength) aspirin 81 mg tablet 81 mg PO DAILY 05/29/23 06/18/23 Previous Rx's Medication Instructions Recorded cyanocobalamin (vitamin B-12) 1,000 mcg PO DAILY #30 caps 06/19/23 1,000 mcg capsule lisinopril 5 mg tablet (Zestril) 5 mg PO HS #30 tabs 06/19/23 Results & Data (ED) Vital Signs Vital Signs - 24 hr 06/18/23 23:10 06/18/23 23:10 06/18/23 23:10 Temperature 36.6 C Temperature Source Oral Pulse Rate 76 Pulse Rhythm Regular Pulse Strength Normal Respiratory Rate 18 Respiratory Effort / Characteristics Non-Labored Spontaneous Respiratory Depth Normal Respiratory Pattern Regular Blood Pressure 138/75 Blood Pressure Mean 96 Blood Pressure Position Lying Pulse Oximetry 96 96 96 Oxygen Delivery Method Room Air Room Air Room Air Sepsis Recent Fever Within 48 Hours No Sepsis New/Unexplained Change in Mental Status No Sepsis Action Taken by Nursing No Action Required 06/18/23 23:16 06/18/23 23:30 06/18/23 23:45 Temperature Temperature Source Pulse Rate 80 83 78 Pulse Rhythm Pulse Strength Respiratory Rate 21 21 Respiratory Effort / Characteristics Respiratory Depth Respiratory Pattern Blood Pressure 129/77 124/74 Blood Pressure Mean 94 90 Blood Pressure Position Pulse Oximetry 95 95 Oxygen Delivery Method Room Air Room Air Sepsis Recent Fever Within 48 Hours Sepsis New/Unexplained Change in Mental Status Sepsis Action Taken by Nursing 06/19/23 00:00 06/19/23 00:15 06/19/23 00:30 Temperature Temperature Source Pulse Rate 72 71 70 Pulse Rhythm Pulse Strength Respiratory Rate 19 17 20 Respiratory Effort / Characteristics Respiratory Depth Respiratory Pattern Blood Pressure 128/83 120/70 123/75 Blood Pressure Mean 98 86 91 Blood Pressure Position Pulse Oximetry 94 93 94 Oxygen Delivery Method Room Air Room Air Room Air Sepsis Recent Fever Within 48 Hours Sepsis New/Unexplained Change in Mental Status Sepsis Action Taken by Nursing 06/19/23 00:45 06/19/23 01:00 06/19/23 02:00 Temperature Temperature Source Pulse Rate 66 77 75 Pulse Rhythm Pulse Strength Respiratory Rate 15 24 19 Respiratory Effort / Characteristics Respiratory Depth Respiratory Pattern Blood Pressure 122/63 130/95 123/92 Blood Pressure Mean 82 106 102 Blood Pressure Position Pulse Oximetry 93 96 95 Oxygen Delivery Method Room Air Room Air Room Air Sepsis Recent Fever Within 48 Hours Sepsis New/Unexplained Change in Mental Status Sepsis Action Taken by [facility] Medications Current Medication List: was personally reviewed by me Laboratory Data Attestation: I reviewed the patient's lab results. 06/18/23 23:20 06/18/23 23:20 Lab Results 06/18/23 06/18/23 06/19/23 Range/Units 23:20 23:20 01:00 WBC 11.19 H (4.8-10.8) K/ul RBC 4.84 (4.70-6.10) M/uL Hgb 15.1 (14.0-18.0) g/dl Hct 43.6 (42.0-52.0) % MCV 90.1 (80.0-100.0) fL MCH 31.2 (25.0-34.0) pg MCHC 34.6 (32.0-36.0) g/dL RDW Std Deviation 38.9 (36.4-46.3) fL RDW Coeff of Josselin 11.9 (11.5-14.5) % Plt Count 287 (130-400) K/uL MPV 8.2 L (9.4-12.4) fL Immature Gran % (Auto) 0.3 % Neut % (Auto) 74.4 % Lymph % (Auto) 15.5 % [place] % (Auto) 7.3 % Eos % (Auto) 2.1 % Baso % (Auto) 0.4 % Neut # (Auto) 8.32 H (1.40-6.50) K/uL Lymph # (Auto) 1.74 (1.20-3.40) K/uL [place] # (Auto) 0.82 H (0.11-0.59) K/uL Eos # (Auto) 0.24 (0.00-0.50) K/uL Baso # (Auto) 0.04 (0.00-0.20) K/uL Immature Gran # (Auto) 0.03 (0.01-0.20) K/uL Sodium 137 (136-145) mmol/L Potassium 3.8 (3.5-5.1) mmol/L Chloride 105 (98-107) mmol/L Carbon Dioxide 24 (21-32) mmol/L Anion Gap 8 (3-11) BUN 18 (6-23) mg/dl Creatinine 0.83 (0.6-1.4) mg/dl Est Cr Clr Drug Dosing 94.5 ml/min Est GFR ( Amer) 106.3 ml/min Est GFR (Non-Af Amer) 91.7 ml/min BUN/Creatinine Ratio 21.7 H (10-20) Glucose 159 H (70-99(Fasting)) mg/dl Calcium 9.0 (8.6-10.3) mg/dl Total Bilirubin 0.3 (0.2-1.0) mg/dl AST 22 (13-39) U/L ALT 18 (7-52) U/L Alkaline Phosphatase 75 (34-104) U/L Troponin I High Sens 28.9 H 44.6 H D (0-20) pg/ml Total Protein 6.7 (6.0-8.3) gm/dl Albumin 3.9 (3.4-5.0) gm/dl Globulin 2.8 (2.5-4.0) gm/dl Albumin/Globulin Ratio 1.4 (0.9-2) Lipase 37 (11-82) U/L Administered Medications Discontinued Medications Aspirin (Aspirin Chew 324 Mg) 324 mg PO NOW STA Stop: 06/18/23 23:15 Last Admin: 06/18/23 23:40 Dose: 324 mg Documented By: ANDIE Aspirin (Aspirin 81 Mg Ectab) 81 mg PO DAILY [facility] Stop: 07/19/23 08:59 Last Admin: 06/19/23 08:22 Dose: 81 mg Documented By: MARCY Cyanocobalamin (Cyanocobalamin 1000 Mcg/Ml Vial) 1,000 mcg IM QAM [facility] Stop: 06/21/23 09:01 Last Admin: 06/19/23 17:38 Dose: 1,000 mcg Documented By: JESSY Metoprolol Succinate (Metoprolol Succ 50mg Ext Rel Tab) 50 mg PO DAILY [facility] Stop: 07/19/23 08:59 Last Admin: 06/19/23 08:22 Dose: 50 mg Documented By: MARCY Imaging Data Radiologist's Impression: Chest X-Ray 06/18/23 23:14 SINGLE VIEW CHEST CLINICAL HISTORY: Atypical chest pain. FINDINGS: An AP, portable, upright chest radiograph is compared to chest x-ray and chest CT dated 05/29/2023. The examination is degraded by portable technique and apical lordotic positioning. The patient is status post midline sternotomy. The heart is enlarged noting atherosclerotic calcification of the thoracic aorta. The pulmonary vasculature is noncongested. There is mild bibasilar scarring/atelectasis. The lungs and pleural spaces are otherwise clear. No pne umothorax is seen. The skeletal structures are osteopenic. The bony thorax is grossly intact. IMPRESSION: Cardiomegaly with no active disease in the chest. ACT 112: Negative or not required by law. Electronically signed by: Molina Marsh M.D. 06/19/2023 7:16 AM Discharge Plan Visit Data Chief Complaint: Cardiac Assessment Stated Complaint: CHEST PRESSURE ED Provider: Marlena Epstein Discharge Problem: Atypical chest pain, Elevated troponin, CAD (coronary atherosclerotic disease) Patient Disposition: Admitted As Inpatient Condition: Good Discharge Instructions Interventions: ED Discharge Assessment Last Done: 06/19/23 05:48
[2023-06-18 23:34] LABS: Basophils # (auto) 0.04 K/uL (0.00-0.20); Basophils % (auto) 0.4 %; Eosinophils # (auto) 0.24 K/uL (0.00-0.50); Eosinophils % (auto) 2.1 %; Hematocrit (blood only) 43.6 % (42.0-52.0); Hemoglobin 15.1 g/dl (14.0-18.0); Immature Granulocytes # (auto) 0.03 K/uL (0.01-0.20); Immature Granulocytes % (auto) 0.3 %; Lymphocytes # (auto) 1.74 K/uL (1.20-3.40); Lymphocytes % (auto) 15.5 %; Mean Corpuscular Hemoglobin 31.2 pg (25.0-34.0); Mean Corpuscular Hgb Conc 34.6 g/dL (32.0-36.0); Mean Corpuscular Volume 90.1 fL (80.0-100.0); Mean Platelet Volume 8.2 fL (9.4-12.4); Monocytes # (auto) 0.82 K/uL (0.11-0.59); Monocytes % (auto) 7.3 %; Neutrophils # (auto) 8.32 K/uL (1.40-6.50); Neutrophils % (auto) 74.4 %; Platelet Count 287 K/uL (130-400); RDW Coefficient of Variation 11.9 % (11.5-14.5); RDW Standard Deviation 38.9 fL (36.4-46.3); Red Blood Count 4.84 M/uL (4.70-6.10); White Blood Count 11.19 K/ul (4.8-10.8)
[2023-06-18 23:55] LABS: Albumin Level 3.9 gm/dl (3.4-5.0); Bilirubin,Total 0.3 mg/dl (0.2-1.0); Potassium 3.8 mmol/L (3.5-5.1)
[2023-06-19 00:01] LABS: Albumin Globulin Ratio 1.4 (0.9-2); BUN Creatinine Ratio 21.7 (10-20); Creatinine Clr Calc Pharmacy 94.5 ml/min; Est GFR (African American) 106.3 ml/min; Est GFR (Non-African American) 91.7 ml/min; Globulin 2.8 gm/dl (2.5-4.0); Total Protein 6.7 gm/dl (6.0-8.3)
[2023-06-19 00:07] LABS: Troponin I High Sensitivity 28.9 pg/ml (0-20)
--- NOTE | 2023-06-19 03:30 | History & Physical Report ---
Date of Service June 19, 2023 Assessment & Plan (1) Elevated troponin: Plan: Patient with increasing troponin. Atypical symptoms preceding arrival. Was recently seen by Cardiology for similar. No chest pain -Telemetry -Trend troponin -Continue home medications (2) Syncope: Plan: Likely vaso-vagal syncope. Unclear if hand burning is associated with near syncope -Fall precautions -Check orthostatic VS -Check AIC and B12 History of Present Illness Chief Complaint: Near Syncope Primary Care Provider: Frederick Pantoja Arun Castillo is a 68yo male with history of CAD s/p CABG and stents in place, HTN, HLP and GERD presenting with episode of near syncope. Patient was admitted to [facility] for similar presentation on 05/29/23. He had an elevated troponin at that time; was evaluated by Cardiology and thought to be secondary to vasovagal syncope. This evening he was sitting on his recliner chair around 21:30 when his hands started burning and he felt some discomfort under his ribs bilaterally. He had some nausea and became pale and nearly passed out. His checked his blood pressure and noted it was low. He had generalized weakness but no focal deficits. He denies fever, chills, chest pain, palpitations, abdominal pain, vomiting, diarrhea Allergies Allergy/AdvReac Type Severity Reaction Status Date / Time No Known Drug Allergies Allergy Unknown NONE Verified 06/12/23 10:37 Home Medications Medication Instructions Recorded Confirmed Type cholecalciferol (vitamin D3) 125 See Rx Instructions .Route .COMPLEX 02/21/23 06/18/23 History mcg (5,000 unit) tablet (Vitamin D3) ezetimibe 10 mg tablet (Zetia) 10 mg PO HS 02/21/23 06/18/23 History lisinopril 10 mg tablet 10 mg PO HS 02/21/23 06/18/23 History rosuvastatin 20 mg tablet 20 mg PO HS 02/21/23 06/18/23 History metoprolol succinate 50 mg 50 mg PO DAILY 03/13/23 06/18/23 History tablet,extended release 24 hr acetaminophen 500 mg tablet 1,000 mg PO TID PRN Pain 05/29/23 06/18/23 History (Tylenol Extra Strength) aspirin 81 mg tablet 81 mg PO DAILY 05/29/23 06/18/23 History Past Med/Surg History Medical History Abnormal EKG Anxiety no meds Coronary artery disease S/p stents prior to 2002 S/p 3 vessel CABG 2002 No longer follows with cardio (only PRN) Elevated troponin Encounter for pre-operative examination GERD (gastroesophageal reflux disease) Well controlled and stable Hearing deficit Hyperlipidemia Hypertension Hypotension Leukocytosis Lumbar degenerative disc disease (09/01/14) Lumbar postlaminectomy syndrome Sacroiliac joint dysfunction History of right SI joint fusion Syncope Surgical History History of cardiac cath x5?--had stents placed (unsure how many--last had stents placed prior to triple bypass in 2002) last heart cath 2013@ [facility] (no stents placed) History of colonoscopy History of coronary artery bypass graft triple bypass @ 2002 @ [facility] in [place] History of lumbar fusion L4-5 - 2013 - Dr Arvind Concepcion History of tooth extraction S/P right knee arthroscopy Status post right partial knee replacement 02/2023 - Dr See Causey Family History Father Heart disease pacemaker Mother Diabetes Brother Coronary heart disease CABG Other No family history of adverse response to anesthesia Denies family history of Deep vein thrombosis Pulmonary embolism Social History Smoking Status: Never smoker Second Hand Exposure: No; Do You Dip or Chew Tobacco: No; Hx Alcohol Use: No Hx Substance Use: No Preferred Language: Barbadian Communication Ability: Effective 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 Required: No Beliefs That Will Affect Care: None marital status: Current Living Situation: Spouse Current Living Situation Comment: spouse, and lives with grand daughter and 's cousin current occupational status: employed 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[employer]; 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 How many Children do You have: 3 Feels Safe at Home: Yes Assistive Devices: Glasses and Hearing Aid - Bilateral Review of Systems Review of Systems: All systems reviewed & are unremarkable except as noted in HPI & below Physical Exam Physical Exam: General: patient resting comfortably, NAD, non-toxic in appearance, AA&O x 4 Skin: warm, dry, intact, no rashes or lesions HEENT: NC/AT, PERRL, EOMI, anicteric sclera, conjunctiva without injection, external ear normal to inspection and nontender, nares patent, moist mucus membranes, dentition intact, no oropharyngeal lesions, neck supple, trachea midline, no LAD, no thyromegaly, no JVD Heart: +S1/S2, regular, no m/r/g Lungs: equal air entry bilaterally, no rales/rhonchi/wheezes Abd: +BS, soft, NT/ND, no masses/organomegaly/ascites Ext: warm, 2+ pulses in UE/LE bilaterally, no clubbing/cyanosis or edema Neuro: nonfocal, patient AA&O x 4, speech intact, no facial droop, moving all extremities on command with equal strength 5/5 Results & Data Results & Data Vital Signs (Past 12 Hours) Vital Signs Temp Pulse Resp BP Pulse Ox O2 Del Method 06/19/23 03:06 60 06/19/23 02:00 75 19 123/92 95 Room Air 06/19/23 01:00 77 24 130/95 96 Room Air 06/19/23 00:45 66 15 122/63 93 Room Air 06/19/23 00:30 70 20 123/75 94 Room Air 06/19/23 00:15 71 17 120/70 93 Room Air 06/19/23 00:00 72 19 128/83 94 Room Air 06/18/23 23:45 78 21 124/74 95 Room Air 06/18/23 23:30 83 21 129/77 95 Room Air 06/18/23 23:16 80 06/18/23 23:10 96 Room Air 06/18/23 23:10 96 Room Air 06/18/23 23:10 36.6 C 76 18 138/75 96 Room Air Laboratory Results Laboratory Results WBC 11.19 K/ul (4.8-10.8) H 06/18/23 23:20 RBC 4.84 M/uL (4.70-6.10) 06/18/23 23:20 Hgb 15.1 g/dl (14.0-18.0) 06/18/23 23:20 Hct 43.6 % (42.0-52.0) 06/18/23 23:20 MCV 90.1 fL (80.0-100.0) 06/18/23 23:20 MCH 31.2 pg (25.0-34.0) 06/18/23 23:20 MCHC 34.6 g/dL (32.0-36.0) 06/18/23 23:20 RDW Std Deviation 38.9 fL (36.4-46.3) 06/18/23 23:20 RDW Coeff of Josselin 11.9 % (11.5-14.5) 06/18/23 23:20 Plt Count 287 K/uL (130-400) 06/18/23 23:20 MPV 8.2 fL (9.4-12.4) L 06/18/23 23:20 Immature Gran % (Auto) 0.3 % 06/18/23 23:20 Neut % (Auto) 74.4 % 06/18/23 23:20 Lymph % (Auto) 15.5 % 06/18/23 23:20 [place] % (Auto) 7.3 % 06/18/23 23:20 Eos % (Auto) 2.1 % 06/18/23 23:20 Baso % (Auto) 0.4 % 06/18/23 23:20 Neut # (Auto) 8.32 K/uL (1.40-6.50) H 06/18/23 23:20 Lymph # (Auto) 1.74 K/uL (1.20-3.40) 06/18/23 23:20 [place] # (Auto) 0.82 K/uL (0.11-0.59) H 06/18/23 23:20 Eos # (Auto) 0.24 K/uL (0.00-0.50) 06/18/23 23:20 Baso # (Auto) 0.04 K/uL (0.00-0.20) 06/18/23 23:20 Immature Gran # (Auto) 0.03 K/uL (0.01-0.20) 06/18/23 23:20 Sodium 137 mmol/L (136-145) 06/18/23 23:20 Potassium 3.8 mmol/L (3.5-5.1) 06/18/23 23:20 Chloride 105 mmol/L (98-107) 06/18/23 23:20 Carbon Dioxide 24 mmol/L (21-32) 06/18/23 23:20 Anion Gap 8 (3-11) 06/18/23 23:20 BUN 18 mg/dl (6-23) 06/18/23 23:20 Creatinine 0.83 mg/dl (0.6-1.4) 06/18/23 23:20 Est Cr Clr Drug Dosing 94.5 ml/min 06/18/23 23:20 Est GFR ( Amer) 106.3 ml/min 06/18/23 23:20 Est GFR (Non-Af Amer) 91.7 ml/min 06/18/23 23:20 BUN/Creatinine Ratio 21.7 (10-20) H 06/18/23 23:20 Glucose 159 mg/dl (70-99(Fasting)) H 06/18/23 23:20 Calcium 9.0 mg/dl (8.6-10.3) 06/18/23 23:20 Total Bilirubin 0.3 mg/dl (0.2-1.0) 06/18/23 23:20 AST 22 U/L (13-39) 06/18/23 23:20 ALT 18 U/L (7-52) 06/18/23 23:20 Alkaline Phosphatase 75 U/L (34-104) 06/18/23 23:20 Troponin I High Sens 44.6 pg/ml (0-20) H D 06/19/23 01:00 Total Protein 6.7 gm/dl (6.0-8.3) 06/18/23 23:20 Albumin 3.9 gm/dl (3.4-5.0) 06/18/23 23:20 Globulin 2.8 gm/dl (2.5-4.0) 06/18/23 23:20 Albumin/Globulin Ratio 1.4 (0.9-2) 06/18/23 23:20 Lipase 37 U/L (11-82) 06/18/23 23:20 PG Care Time/CCT Total # of Minutes Spent Total Time Spent with Patient: Total time spent is greater than 50% in coordination of care (as documented) at patient's floor/unit and/or counseling patient: Coding Level of Care Code 28297 INT INP/OBS CARE 2/55MIN Diagnoses Elevated troponin R77.8 Syncope R55
[2023-06-19] MEDS ORDERED: ONDANSETRON INJ 2 MG/ML 2 ML VIAL IV PRN (05:48)
[2023-06-19] MEDS ORDERED: ACETAMINOPHEN 500 MG TAB PO PRN (05:48)
--- NOTE | 2023-06-19 07:18 | XRay Report ---
SINGLE VIEW CHEST CLINICAL HISTORY: Atypical chest pain. FINDINGS: An AP, portable, upright chest radiograph is compared to chest x-ray and chest CT dated 05/29. The examination is degraded by portable technique and apical lordotic positioning. The patient is status post midline sternotomy. The heart is enlarged noting atherosclerotic calcification of the thoracic aorta. The pulmonary vasculature is noncongested. There is mild bibasilar scarring/atelecta sis. The lungs and pleural spaces are otherwise clear. No pneumothorax is seen. The skeletal structur es are osteopenic. The bony thorax is grossly intact. IMPRESSION: Cardiomegaly with no active disease in the chest. ACT 112: Negative or not required by law. Electronically signed by: Molina Marsh M.D. 06/19/2023 7:16 AM
[2023-06-19 08:58] LABS: Magnesium 1.9 mg/dl (1.7-2.4); Phosphorus 3.2 mg/dl (2.5-4.9)
[2023-06-19] MEDS ORDERED: METOPROLOL SUCC 50MG EXT REL TAB PO SCH (09:00)
[2023-06-19] MEDS ORDERED: ASPIRIN 81 MG ECTAB PO SCH (09:00)
[2023-06-19 09:13] LABS: Troponin I High Sensitivity 79.2 pg/ml (0-20)
[2023-06-19 10:30] LABS: Estimated Average Glucose 140 mg/dl; Hemoglobin A1C 6.5 % (4.5-5.6)
--- NOTE | 2023-06-19 11:37 | Cardiology Consultation ---
Date of Consultation June 19, 2023 Assessment & Plan (1) Near syncope: (2) Elevated troponin: (3) Coronary artery disease: (4) Hypertension: (5) History of coronary artery bypass graft: (6) Hyperlipidemia: Plan ASSESSMENT/PLAN: 1. Near syncope: Denies loss of consciousness with most recent event but had syncope in the past and was seen by electrophysiology. Possible vasovagal as both episodes seem to occur shortly after hand burning/itching (unclear reason for the hand symptoms). Had documented hypotension after the first event. Could consider reducing lisinopril to 5 mg daily to allow for higher blood pressure, and hopefully avoid loss of consciousness in the future. Less likely to be arrhythmia induced but would recommend 30-day event monitor, to have also a better understanding of heart rate during such episodes which could lead to beta-moustapha adjustments if necessary. Recommend carotid duplex given history of atherosclerotic disease. 2. Elevated troponin: Although no reported hypotension during this event, was hypotensive earlier this month with syncope. Likely demand ischemia in the setting of known multivessel CAD and likely at least transient hypotension. Has had clear angina in the past before revascularization and denies any recent a ngina, even with exercise. Ischemic evaluation not necessary at this time. He did not present with acute coronary syndrome. 3. CAD s/p PCI and then CABG x 3 (2002): No angina. Continue aspirin 81 mg daily. Continue high intensity statin therapy, beta-moustapha as tolerated. 4. Hypertension: Blood pressure well controlled. Consider lowering lisinopril as above. 5. Dyslipidemia: Continue high intensity statin therapy. Also on Zetia. Goal LDL <70. 6. Disposition: Recommended that he avoid driving for now until further testing can be completed. Fortunately, he seems to have a prodrome and if he develops bilateral burning/itching hand, would recommend that he immediately lay down to avoid injury in case he loses consciousness. Patient care communicated with Dr. Longoria of the primary hospitalist service. Follow-up with Dr. Sanchez upon discharge. Thank you for allowing me to participate in the care of your patient. Please call for any other questions or concerns. Sincerely, Henrique Grimes M.D. History of Present Illness Reason for Consultation: Near syncope, elevated troponin Requesting Physician: Conchis Longoria MD Attending Physician: Conchis Longoria MD History of Present Illness Mr. Castillo is a very pleasant 68-year-old gentleman with history significant for CAD s/p PCI and then CABG x 3 (2002), hypertension, dyslipidemia, and syncope. His primary chief of internal medicine is Dr. Sanchez. He was admitted on 06/18/2023 after an episode of near syncope. He states that throughout the day, he had his usual day, with usual amounts of food/drink. He worked in the garden, went on a 3 mile bike ride including steep hills, and then sat down to watch TV and had a bowl of ice cream. During his bike ride, he had no chest pain or significant dyspnea and tolerated exercise well. After eating ice cream however, he felt nauseated and had bilateral hand burning and felt as though he would pass out. He had near syncope but denies actual loss of consciousness. He recalls feeling poorly for several minutes before being back to baseline. He recalls having a Holter monitor last week through his PCP, but did not have any symptoms while wearing the monitor. He was hospitalized on 05/29/2023 with syncope and was seen by vessel scrapper, Dr. Sanchez, who felt that symptoms were consistent with high vagal tone. For that episode, he had just urinated and while walking back to his room, had significant itching/burning in his hands. He started scratching them and then felt dizzy, improving while laying down. He then stood up, became more dizzy and had a syncopal episode. EMS noted hypotension but there was no noted arrhythmia. During that hospital stay, he underwent an echocardiogram which reported normal LV systolic function and wall motion, without significant valvular abnormalities. His high-sensitivity troponin was slightly elevated, peaking at 49. During this hospital stay, his initial high-sensitivity troponin was 44, trending up to 79. He currently feels back to baseline. He denies palpitations, diarrhea, melena, hematochezia, hematuria, edema, chest pain, angina, orthopnea, shortness of breath. He recalls angina in the past as a pressure in his chest, that resolved following his most recent revascularization approximately 20 years ago. Review of systems: As above. Review of systems otherwise negative/unremarkable. Family history: Father has pacemaker. Older brother has pacemaker. Brother has multiple ablations. Third brother has valve replacement. Social history: He denies smoking, alcohol, or drug abuse. He lives at home with his , a granddaughter, and his 's cousin, whom which his is the caregiver. He has 3 children. 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 He was unaccompanied during the consult. Allergies Allergy/AdvReac Type Severity Reaction Status Date / Time No Known Drug Allergies Allergy Unknown NONE Verified 06/12/23 10:37 Home Medications Medication Instructions Recorded Confirmed Type cholecalciferol (vitamin D3) 125 See Rx Instructions .Route .COMPLEX 02/21/23 06/18/23 History mcg (5,000 unit) tablet (Vitamin D3) ezetimibe 10 mg tablet (Zetia) 10 mg PO HS 02/21/23 06/18/23 History lisinopril 10 mg tablet 10 mg PO HS 02/21/23 06/18/23 History rosuvastatin 20 mg tablet 20 mg PO HS 02/21/23 06/18/23 History metoprolol succinate 50 mg 50 mg PO DAILY 03/13/23 06/18/23 History tablet,extended release 24 hr acetaminophen 500 mg tablet 1,000 mg PO TID PRN Pain 05/29/23 06/18/23 History (Tylenol Extra Strength) aspirin 81 mg tablet 81 mg PO DAILY 05/29/23 06/18/23 History Patient History Medical History Abnormal EKG Anxiety no meds Coronary artery disease S/p stents prior to 2002 S/p 3 vessel CABG 2002 No longer follows with cardio (only PRN) Elevated troponin Encounter for pre-operative examination GERD (gastroesophageal reflux disease) Well controlled and stable Hearing deficit Hyperlipidemia Hypertension Hypotension Leukocytosis Lumbar degenerative disc disease (09/01/14) Lumbar postlaminectomy syndrome Sacroiliac joint dysfunction History of right SI joint fusion Syncope Surgical History History of cardiac cath x5?--had stents placed (unsure how many--last had stents placed prior to triple bypass in 2002) last heart cath 2013@ [facility] (no stents placed) History of colonoscopy History of coronary artery bypass graft triple bypass @ 2002 @ [facility] in [place] History of lumbar fusion L4-5 - 2013 - Dr Arvind Concepcion History of tooth extraction S/P right knee arthroscopy Status post right partial knee replacement 02/2023 - Dr See Causey Family History Father Heart disease pacemaker Mother Diabetes Brother Coronary heart disease CABG Other No family history of adverse response to anesthesia Denies family history of Deep vein thrombosis Pulmonary embolism Social History Smoking Status: Never smoker Second Hand Exposure: No; Do You Dip or Chew Tobacco: No; Hx Alcohol Use: No Hx Substance Use: No Preferred Language: Amharic Communication Ability: Effective Gifted Program Teacher Required: No Beliefs That Will Affect Care: None marital status: Current Living Situation: Spouse Current Living Situation Comment: spouse, and lives with grand daughter and 's cousin current occupational status: employed 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 Alert and oriented. HEENT: Anicteric sclera. Neck: No JVD. No bruits. Normal carotid upstrokes bilaterally. Cardiac: No ventricular heave. Regular. Normal S1-S2. No murmurs, rubs, or gallops. Pulmonary: Clear to auscultation bilaterally without wheezes, rales, or rhonchi. Abdomen: Soft, nontender, nondistended, with normoactive bowel sounds. No bruits noted. Extremities: 2+ radial pulses bilaterally. 2+ posterior tibialis pulses bilaterally. No edema or cyanosis. Psychiatric: Affect appears appropriate. Results & Data Vital Signs (Past 12 Hours) Vital Signs Pulse Resp BP Pulse Ox O2 Del Method 06/19/23 06:00 67 18 128/66 95 Room Air 06/19/23 03:00 59 L 16 127/59 L 94 Room Air 06/19/23 03:06 60 06/19/23 02:00 75 19 123/92 95 Room Air 06/19/23 01:00 77 24 130/95 96 Room Air 06/19/23 00:45 66 15 122/63 93 Room Air 06/19/23 00:30 70 20 123/75 94 Room Air 06/19/23 00:15 71 17 120/70 93 Room Air 06/19/23 00:00 72 19 128/83 94 Room Air 06/18/23 23:45 78 21 124/74 95 Room Air Laboratory Results Laboratory Results - last 24 hr 06/18/23 06/18/23 06/19/23 23:20 23:20 01:00 WBC 11.19 H RBC 4.84 Hgb 15.1 Hct 43.6 MCV 90.1 MCH 31.2 MCHC 34.6 RDW Std Deviation 38.9 RDW Coeff of Josselin 11.9 Plt Count 287 MPV 8.2 L Immature Gran % (Auto) 0.3 Neut % (Auto) 74.4 Lymph % (Auto) 15.5 [place] % (Auto) 7.3 Eos % (Auto) 2.1 Baso % (Auto) 0.4 Neut # (Auto) 8.32 H Lymph # (Auto) 1.74 [place] # (Auto) 0.82 H Eos # (Auto) 0.24 Baso # (Auto) 0.04 Immature Gran # (Auto) 0.03 Sodium 137 Potassium 3.8 Chloride 105 Carbon Dioxide 24 Anion Gap 8 BUN 18 Creatinine 0.83 Est Cr Clr Drug Dosing 94.5 Est GFR ( Amer) 106.3 Est GFR (Non-Af Amer) 91.7 BUN/Creatinine Ratio 21.7 H Glucose 159 H Estimat Average Glucose Hemoglobin A1c Calcium 9.0 Phosphorus Magnesium Total Bilirubin 0.3 AST 22 ALT 18 Alkaline Phosphatase 75 Troponin I High Sens 28.9 H 44.6 H D Total Protein 6.7 Albumin 3.9 Globulin 2.8 Albumin/Globulin Ratio 1.4 Lipase 37 Vitamin B12 06/19/23 06/19/23 06/19/23 08:04 08:04 08:04 WBC RBC Hgb Hct MCV MCH MCHC RDW Std Deviation RDW Coeff of Josselin Plt Count MPV Immature Gran % (Auto) Neut % (Auto) Lymph % (Auto) [place] % (Auto) Eos % (Auto) Baso % (Auto) Neut # (Auto) Lymph # (Auto) [place] # (Auto) Eos # (Auto) Baso # (Auto) Immature Gran # (Auto) Sodium Potassium Chloride Carbon Dioxide Anion Gap BUN Creatinine Est Cr Clr Drug Dosing Est GFR ( Amer) Est GFR (Non-Af Amer) BUN/Creatinine Ratio Glucose Estimat Average Glucose 140 Hemoglobin A1c 6.5 H Calcium Phosphorus 3.2 Magnesium 1.9 Total Bilirubin AST ALT Alkaline Phosphatase Troponin I High Sens 79.2 H* D Total Protein Albumin Globulin Albumin/Globulin Ratio Lipase Vitamin B12 206 Diagnostic Findings Echo report reviewed as noted above in HPI. Chest x-ray 06/18/2023: No active disease in the chest per radiology. CTA chest 05/29/2023: No acute abnormality. No PE. ECG personally reviewed 06/18/2023 at 2313: Sinus rhythm 81 bpm. RBBB. Lateral T wave inversion improved compared to previous ECG on 05/29/2023. History and physical report reviewed. Labs reviewed and notable for mildly elevated high-sensitivity troponin, normal renal function, normal potassium, elevated A1c, mild leukocytosis, normal hemoglobin. Medications Administered Current Inpatient Medications Acetaminophen (Acetaminophen 500 Mg Tab) 1,000 mg PO TID PRN PRN Reason: Pain Stop: 07/19/23 05:47 Aspirin (Aspirin 81 Mg Ectab) 81 mg PO DAILY PIEDAD Stop: 07/19/23 08:59 Last Admin: 06/19/23 08:22 Dose: 81 mg Ezetimibe (Ezetimibe 10 Mg Tab) 10 mg PO HS PIEDAD Stop: 07/19/23 20:59 Lisinopril (Lisinopril 10 Mg Tab) 10 mg PO HS PIEDAD Stop: 07/19/23 20:59 Metoprolol Succinate (Metoprolol Succ 50mg Ext Rel Tab) 50 mg PO DAILY PIEDAD Stop: 07/19/23 08:59 Last Admin: 06/19/23 08:22 Dose: 50 mg Ondansetron HCl (Ondansetron Inj 2 Mg/Ml 2 Ml Vial) 4 mg IV Q6H PRN PRN Reason: Nausea Stop: 07/19/23 05:47 Rosuvastatin Calcium (Rosuvastatin Calcium 20 Mg Tab) 20 mg PO HS PIEDAD Stop: 07/19/23 20:59 PG Care Time/CCT Total # of Minutes Spent Total Time Spent with Patient: Total time spent is greater than 50% in coordination of care (as documented) at patient's floor/unit and/or counseling patient: Coding Level of Care Code 22712 INT INP/OBS CARE 2/55MIN Diagnoses Near syncope R55 Elevated troponin R77.8 Coronary artery disease I25.10 Hypertension I10 History of coronary artery bypass graft Z95.1 Hyperlipidemia E78.5
--- NOTE | 2023-06-19 14:15 | Ultrasound Report ---
ULTRASOUND OF THE CAROTID ARTERIES CLINICAL HISTORY: Syncope. COMPARISON STUDY: No priors. TECHNIQUE: Real-time, grayscale, and color Doppler sonography of the carotid arteries is performed. I mages are reviewed in the transverse and longitudinal planes. FINDINGS: The carotid arteries are patent bilaterally and demonstrate antegrade flow. There is mild to moderate atherosclerotic plaque seen in the carotid bulbs bilaterally. Normal doppler arterial waveforms are seen throughout. Velocity measurements are listed below. Common carotid peak systolic velocity (cm/sec): RIGHT: 78 LEFT: 80 ICA proximal peak systolic velocity (cm/sec): RIGHT: 74 LEFT: 92 ICA mid peak systolic velocity (cm/sec): RIGHT: 100 LEFT: 98 ICA distal peak systolic velocity (cm/sec): RIGHT: 78 LEFT: 73 ICA/CC peak systolic ratio: RIGHT: 1.3 LEFT: 1.2 Antegrade flow was shown in the vertebral arteries. The external carotid arteries are patent. IMPRESSION: 1. There is no sonographic evidence of hemodynamically significant stenosis in the right or left de la cruz tid arterial system. 2. Antegrade flow is shown in the vertebral arteries. ACT 112: Negative or not required by law. Electronically signed by: Molina Marsh M.D. 06/19/2023 2:13 PM
[2023-06-19] MEDS ORDERED: CYANOCOBALAMIN 1000 MCG/ML VIAL IM SCH (16:00)
--- NOTE | 2023-06-19 16:38 | Discharge Summary ---
Discharge Summary Date of Service June 19, 2023 Notes For Next Care Provider Arranging 30 day cardiac event monitor Needs Cardiology follow up Medication Changes From Visit Decrease lisinopril to 5mg po hs Start B12 1000 mcg po daily Admission HPI Per Admitting Provider Arun Castillo is a 68yo male with history of CAD s/p CABG and stents in place, HTN, HLP and GERD presenting with episode of near syncope. Patient was admitted to [facility] for similar presentation on 05/29/23. He had an elevated troponin at that time; was evaluated by Cardiology and thought to be secondary to vasovagal syncope. This evening he was sitting on his recliner chair around 21:30 when his hands started burning and he felt some discomfort under his ribs bilaterally. He had some nausea and became pale and nearly passed out. His checked his blood pressure and noted it was low. He had generalized weakness but no focal deficits. He denies fever, chills, chest pain, palpitations, abdominal pain, vomiting, diarrhea Principal Dx & Hospital Course #1 = Principal Diagnosis (1) Near syncope: Likely vaso-vagal syncope. Unclear if hand burning is associated with near syncope or B12 deficiency? Both times he had hypotension and a prodrome. First time was associated with micturition; second episode this time associated with eating ice cream Troponin mildly elevated both times likely from demand ischemia Appreciate Cardiology consult Carotid US negative ECHO not repeated this admission No events on tele here-plan for 30 day cardiac event monitor after discharge F/u with Cardiology as outpt advised no driving for now and if has prodrome, to lie down or place head between knees as soon as possible -reduce lisinopril to 5mg po hs down from 10mg to allow more room to avoid hypotension (2) Elevated troponin: Patient with increasing troponin. Atypical symptoms preceding arrival. Was recently seen by Cardiology for similar. No chest pain ECG unchanged form previous myocardial demand ischemia from syncope or near syncope in setting of underlying CAD (3) Hypotension: as above, lowering lisinopril dose (4) Leukocytosis: WBC 11 on admission, likely from stress of near syncope, no signs of infection otherwise (5) Hypertension: lowering lisinopril as above continue home metoprolol (6) Coronary artery disease: remote CABG, stents continue ASA, statin, metoprolol, lisinopril (7) Hyperlipidemia: continue zetia, crestor (8) B12 deficiency: B12 level here only 204 with burning in hands possibly related to this? either way, give B12 1000mcg IM x 1 here and then advised 1000 mcg B12 po daily after discharge f/u level with PCP (9) Diabetes mellitus type 2 in obese: HgBA1C here elevated at 6.5%--> new diagnosis for him advised PCP f/u to start metformin Plan Dispo-stable for dc to home Discharge Exam Constitutional WD/WN, vitals as above Respiratory normal respiratory effort, lungs clear to auscultation Cardiovascular RRR, no murmur, no edema Gastrointestinal (Abdomen) normal bowel sounds, soft, nontender, no hepatosplenomegaly Neurologic PERRL, EOMI, accommodation nl, no face palsy, no dysarthria Psychiatric A+Ox3, euthymic affect Updated Medication List Medication Instructions Recorded Confirmed Type cholecalciferol (vitamin D3) 125 See Rx Instructions .Route .COMPLEX 02/21/23 06/18/23 History mcg (5,000 unit) tablet (Vitamin D3) ezetimibe 10 mg tablet (Zetia) 10 mg PO HS 02/21/23 06/18/23 History lisinopril 10 mg tablet 10 mg PO HS 02/21/23 06/18/23 History rosuvastatin 20 mg tablet 20 mg PO HS 02/21/23 06/18/23 History metoprolol succinate 50 mg 50 mg PO DAILY 03/13/23 06/18/23 History tablet,extended release 24 hr acetaminophen 500 mg tablet 1,000 mg PO TID PRN Pain 05/29/23 06/18/23 History (Tylenol Extra Strength) aspirin 81 mg tablet 81 mg PO DAILY 05/29/23 06/18/23 History cyanocobalamin (vitamin B-12) 1,000 mcg PO DAILY #30 caps 06/19/23 Rx 1,000 mcg capsule lisinopril 5 mg tablet (Zestril) 5 mg PO HS #30 tabs 06/19/23 Rx Hospital Stay Data Consultations 06/19/23 02:22 ED Decision to Admit Stat 06/19/23 10:27 Consult Cardiology Routine 06/19/23 16:00 Consult NIAG director of product management Routine Diagnostic Imagining Performed 06/19/23 11:50 Carotid duplex [US carotid doppler BI] Routine Pending Results Patient Have Any Pending Studies at Discharge: No Discharge Instructions Given to Patient (Per Discharging Provider) You were admitted for nearly passing out again. This may be due to a vasovagal response causing low blood pressure. Your lisinopril dose will be lowered to 5mg daily so your blood pressures don't go as low. You will need to get the 30 day heart monitor set up tomorrow as scheduled to look for any abnormal heart rhythms that could cause you to pass out. Your vitamin B12 level was borderline low and you were given an injection of B12. You can continue to take an oral supplement of this after discharge. You were also diagnosed with diabetes this admission. Please discuss the treatment of this with your PCP. Total Time Total Time Spent Total Time Spent (In Minutes): 40 min Coding Level of Care Code INP/OBS EV SAME DAY LV 2,70MIN Diagnoses Near syncope R55 Elevated troponin R77.8 Hypotension I95.9 Leukocytosis D72.829 Hypertension I10 Coronary artery disease I25.10 Hyperlipidemia E78.5 B12 deficiency E53.8 Diabetes mellitus type 2 in obese E11.69; E66.9
[2023-06-19] MEDS ORDERED: ROSUVASTATIN CALCIUM 20 MG TAB PO SCH (21:00)
[2023-06-19] MEDS ORDERED: lisinopril 5 MG TAB PO SCH (21:00)
[2023-06-19] MEDS ORDERED: lisinopril 10 MG TAB PO SCH (21:00)
[2023-06-19] MEDS ORDERED: EZETIMIBE 10 MG TAB PO SCH (21:00)
--- NOTE | 2023-06-20 05:50 | Electrocardiogram Report ---
Test Reason : Blood Pressure : / mmHG Vent. Rate : 081 BPM Atrial Rate : 081 BPM P-R Int : 172 ms QRS Dur : 144 ms QT Int : 418 ms P-R-T Axes : 064 -17 064 degrees QTc Int : 485 ms Normal sinus rhythm Right bundle branch block T wave abnormality, consider lateral ischemia Abnormal ECG When compared with ECG of 29-MAY-2023 08:31, T wave inversion no longer evident in Inferior leads T wave inversion more evident in Anterior leads T wave inversion less evident in Lateral leads Confirmed by Nato Grimes ([id number]) on 06/20/2023 5:50:11 AM Referred By: REFERRED SELF Confirmed By:Nato Grimes
== END 2023-06-19 17:47 | disposition home or self-care (01) ==
LOC: ED 23:08 → EDINP 23:08 → SUATTDRO 06-19 02:52 → EDINP 06-19 05:48